=== PATIENT | female | born 1955 | race Caucasian/White ===

== ENCOUNTER → 2017-07-08 16:54 | Outpatient (CLI) | payer MEDICARE, BC, SELFPAY ==
--- NOTE | 2017-07-08 | XR_ITS ---
XR chest 2V Ordering Physician: Darnell Armstrong MD Patient Age: 61 years: Female HISTORY: ITS.REASON: COPD TECHNIQUE: PA and lateral chest COMPARISON :Previous CXR & 01/23/2017, with 11/27/2016 CT chest FINDINGS Heart upper normal in size. Emely and mediastinal structures satisfactory. The lungs appear similar to previous studies with no discrete acute findings. The markings are slightly more pronounced towards right base but this is a stable feature. There is mild dextrocurvature T-spine and mild degenerative changes T-spine. Chest wall unremarkable. .\ . mild flattening of diaphragm the lateral film may reflect mild hyperexpansion. . No significant lung lesions or nodules appreciated on this plain film. ====IMPRESSION: stable chest. Nothing definitely acute.
[2017-07-08 17:02] LABS: Adenovirus,PCR Not Detected (NotDetected); Bordetella Pertussis Not Detected (NotDetected); Chlamydophila Pneumoniae, PCR Not Detected (NotDetected); Coronavirus 229E Not Detected (NotDetected); Coronavirus NL63 Not Detected (NotDetected); Coronavirus OC43 Not Detected (NotDetected); Coronovirus HKU1,PCR Not Detected (NotDetected); Human Metapneumovirus Not Detected (NotDetected); Influenza A, PCR Not Detected (NotDetected); Influenza AH1, 2009 Not Detected (NotDetected); Influenza AH1, PCR Not Detected (NotDetected); Influenza AH3,PCR Not Detected (NotDetected); Influenza B, PCR Not Detected (NotDetected); Mycoplasma Pneumoniae, PCR Not Detected (NotDected); Parainfluenza 1, PCR Not Detected (NotDetected); Parainfluenza 2, PCR Not Detected (NotDetected); Parainfluenza 3, PCR Not Detected (NotDetected); Parainfluenza 4, PCR Not Detected (NotDetected); Respiratory Syncytial Virus Not Detected (NotDetected); Rhinovirus/Enterovirus Not Detected (NotDetected)
== END ==
PROVIDERS: PCP Internal Medicine Adolescent Medicine; Visit Provider Internal Medicine Adolescent Medicine
DX: R05 Cough (principal)
CPT/HCPCS: 71046; 87486; 87581; 87633; 87798

== ENCOUNTER → 2017-07-16 12:40 | Outpatient (CLI) | payer MEDICARE, BC, SELFPAY ==
--- NOTE | 2017-07-16 12:46 | CA_ITS ---
PROCEDURE: 2-D M-mode and color Doppler study INDICATIONS FOR THE TEST: Chest pain COPDX Heart Murmur Tobacco SmokingEX Palpitations Fatigue Syncope Edema HypertensionXDiabetes MellitusX Rheumatic Fever SOBXDOEXObesityXHyperlipidemia Family History HD Additional History TDS BODY HABITUS COPD PATIENT INFORMATION HEIGHT: 63 WEIGHT:226 GENDER: Female B/P:100/86 2-D/M-MODE INTERPRETATION: 2-D MEASUREMENTS OBSERVED VALUES IN CMS Right Ventricular Dimension (RVDd) 1.2 Interventricular Septum (Thickness)(IVsd) 1.4 Left Ventricular Internal Dimensions(LVIDd) 4.9 Left Ventricular Posterior Wall (Thickness)(LVPWd) 1.4 Aortic Root 3.1 Aortic Cusp Separation 1.9 Left Atrial Dimensions (LAD) 2.8 2D 1. Technically very difficult study, limited views were obtained. Endocardial surfaces are poorly visualized. 2. The left atrium is mildly enlarged, left ventricle is normal size, there is mild concentric left ventricular hypertrophy, there is hyperdynamic left ventricular systolic function, visually estimated ejection fraction obtained views is over 65%. Visualized segments did not assess segmental wall motion abnormality. 3. The right-sided chambers are grossly normal. 4. The aortic valve is thickened and calcified leaflet cannot well visualized. 5. The mitral valve has mitral annular calcification which extends and both anterior and posterior mitral leaflet. 6. The pulmonic valve is not visualized 7. The tricuspid valve leaflets are minimally thickened. 8. No significant pericardial effusion noted. DOPPLER INTERROGATION: Doppler interrogation of the aortic, mitral and tricuspid valve reveals presence of increased velocity across the aortic valve is 22 mmHg represents mild aortic stenosis, there is no significant aortic insufficiency present. There is mild mitral and tricuspid regurgitation, tricuspid and jet velocity insufficient for calculation of the right ventricular systolic pressure, diastolic parameters are inconclusive. CONCLUSION: 1. Technically difficult study because of the patient's factor and poor acoustic windows, endocardial surface of poorly visualized, limited views were obtained. 2. Mildly enlarged left atrium, normal left ventricular size, mild concentric left ventricular hypertrophy, hyperdynamic left ventricular systolic function, visually estimated ejection fraction was 65% in the obtained views. Diastolic parameters are inconclusive. 3. Thickened and calcified aortic valve, mean gradient across valve of 22 mmHg represents mild aortic stenosis, there is no significant aortic insuf
[2017-07-16 15:59] LABS: Anion Gap 15.7 mEq/L (5-15); Blood Urea Nitrogen 32 mg/dL (7-18); Carbon Dioxide 29 mmol/L (21.0-32.0); Chloride 99 mmol/L (98-107); Estimated Glomerular Filt Rate 35 ml/min (>60); GFR (African American) 43 ML/MIN (>60); Glucose 196 mg/dL (74-106); Potassium 4.7 mmoL/L (3.5-5.1); Sodium 139 mmol/L (136-145)
== END ==
PROVIDERS: PCP Internal Medicine Adolescent Medicine; Visit Provider Internal Medicine Cardiovascular Disease
DX: J44.9 Chronic obstructive pulmonary disease, unspecified (principal); I25.118 Atherosclerotic heart disease of native coronary artery with other forms of angina pectoris; I11.0 Hypertensive heart disease with heart failure; E66.9 Obesity, unspecified
CPT/HCPCS: 36415; 80048; 83880; 93306

== ENCOUNTER → 2017-07-25 11:36 | Outpatient (POV) | payer MEDICARE, BC, SELFPAY ==
[2017-07-25 12:01] LABS: Anion Gap 9.4 mEq/L (5-15); Blood Urea Nitrogen 27 mg/dL (7-18); Carbon Dioxide 32 mmol/L (21.0-32.0); Chloride 99 mmol/L (98-107); Creatinine,Serum 1.11 mg/dL (0.55-1.02); Estimated Glomerular Filt Rate 50 ml/min (>60); GFR (African American) 60 ML/MIN (>60); Glucose 264 mg/dL (74-106); Potassium 4.4 mmoL/L (3.5-5.1); Sodium 136 mmol/L (136-145)
== END ==
PROVIDERS: Physician Assistant; Visit Provider Internal Medicine Cardiovascular Disease
DX: I25.10 Atherosclerotic heart disease of native coronary artery without angina pectoris (principal); I11.9 Hypertensive heart disease without heart failure; R00.0 Tachycardia, unspecified; J44.9 Chronic obstructive pulmonary disease, unspecified; R06.00 Dyspnea, unspecified
CPT/HCPCS: 36415; 80048

== ENCOUNTER → 2017-08-13 12:24 | Outpatient (CLI) | payer MEDICARE, BC, SELFPAY ==
[2017-08-13 12:46] LABS: Basophils # 0.1 K/mm3 (0-0.2); Basophils % 0.6 % (0.1-2.0); Eosinophils # 0.2 K/mm3 (0.0-0.4); Eosinophils % 1.7 % (0.1-12.0); Hematocrit 35.3 % (37.0-47.0); Hemoglobin 11.2 g/dL (12.2-16.2); Lymphocytes # 1.6 K/mm3 (0.7-4.5); Lymphocytes % 18.6 K/mm3 (10-50); Mean Corpuscular HGB Conc 31.8 g/dL (31.8-35.4); Mean Corpuscular Hemoglobin 29.5 pg (27.0-31.2); Mean Corpuscular Volume 92.5 fl (81-99); Mean Platelet Volume 8.6 fl (7.4-10.4); Monocytes # 0.7 K/mm3 (0.1-1.0); Monocytes % 7.6 % (1.7-9.3); Neutrophils # 6.1 K/mm3 (1.8-7.8); Neutrophils % 71.4 % (37.0-80.0); Platelet Count 348 K/mm3 (142-424); Red Blood Count 3.81 M/mm3 (4.20-5.40); Red Cell Distribution Width 15.5 % (11.5-17.5); White Blood Count 8.6 K/mm3 (4.8-10.8)
[2017-08-13 13:03] LABS: Alanine Aminotransferase 31 U/L (12-78); Albumin Level 3.2 gm/dL (3.4-5.0); Albumin/Globulin Ratio 0.7 (1.1-1.8); Alkaline Phosphatase 79 U/L (46-116); Anion Gap 12.6 mEq/L (5-15); Aspartate Amino Transferase 26 U/L (15-37); Bilirubin,Total 0.3 mg/dL (0.2-1.0); Blood Urea Nitrogen 17 mg/dL (7-18); Calcium 8.8 mg/dL (8.5-10.1); Carbon Dioxide 28 mmol/L (21.0-32.0); Chloride 101 mmol/L (98-107); Chol/HDL Ratio 4.6 (1-3.5); Cholesterol 174 mg/dL (140-200); Creatinine,Serum 0.96 mg/dL (0.55-1.02); Estimated Glomerular Filt Rate 59 ml/min (>60); GFR (African American) 71 ML/MIN (>60); Globulin 4.3 gm/dl (1.3-3.2); Glucose 163 mg/dL (74-106); HDL Cholesterol 38 mg/dL (29-89); LDL Cholesterol 112 mg/dL (0-130); Potassium 4.6 mmoL/L (3.5-5.1); Sodium 137 mmol/L (136-145); Total Protein,Serum 7.5 gm/dL (6.4-8.2); Triglycerides 122 mg/dL (30-200); VLDL Cholesterol 24 mg/dL (0-40)
[2017-08-13 13:06] LABS: Hemoglobin A1C 8.3 % (0.0-7.0)
== END ==
PROVIDERS: Visit Provider Nurse Practitioner Family
DX: Z00.00 Encounter for general adult medical examination without abnormal findings (principal); E78.5 Hyperlipidemia, unspecified; E11.9 Type 2 diabetes mellitus without complications; I10 Essential (primary) hypertension; D64.9 Anemia, unspecified
CPT/HCPCS: 36415; 80053; 80061; 83036; 85025

== ENCOUNTER → 2017-08-30 09:30 | Outpatient (CLI) | payer MEDICARE, BC, SELFPAY ==
--- NOTE | 2017-08-30 09:32 | MM_ITS ---
MM Dig screening mamm BI w/CAD CAD Screening COMPARISON: Digital mammograms 04/11/2015 INDICATION: There is a history of breast cancer in patient's niece. TECHNIQUE: Standard CC and MLO images were obtained. R2 CAD reviewed. FINDINGS: The breasts are composed primarily of fat with minimal scattered fibroglandular densities in each breast. There are multiple benign-appearing calcifications in each breast. There is no suspicious lesion and no suspicious microcalcifications. IMPRESSION: Fatty type breast parenchyma with no suspicious lesion seen BI-RADS Category: 2 Benign Finding(s) RECOMMENDED FOLLOW-UP: 1YR - 1 YEAR FOLLOW-UP (A letter has been sent to the patient regarding results of the study.)
== END ==
PROVIDERS: PCP Internal Medicine Adolescent Medicine; Visit Provider Nurse Practitioner Family
DX: Z12.31 Encounter for screening mammogram for malignant neoplasm of breast (principal)
CPT/HCPCS: 77067

== ENCOUNTER 2017-08-30 21:28 | Observation (INO) ==
--- NOTE | 2017-08-30 21:39 | Emergency Department Note ---
ED Disposition Clinical Impression: Dehydration, Epigastric pain, Nausea Acute renal failure Qualifiers: Acute renal failure type: unspecified Qualified Code(s): N17.9 - Acute kidney failure, unspecified Thoracic back pain Qualifiers: Chronicity: acute Back pain laterality: bilateral Qualified Code(s): M54.6 - Pain in thoracic spine Disposition: Still a Patient Condition on Discharge: Good Referrals: Darnell Armstrong MD [Primary Care Provider] - - Critical Care Critical Care Time: No Attestation: On , the high probability of a clinically significant, sudden or life threatening deterioration of the following system(s) required my full and direct attention, intervention and personal management. The time I documented below is in addition to time spent performing reported procedures but includes the following listed in this critical care notation. Medical Decision Making - Harris Inquiry Pt receiving controlled substance: Yes Harris was queried for this patient: Yes Reference #:: [id number] Risks and benefits of using a controlled substance: were not discussed with pt by me Comment: 0 rxs. Vital Signs: 08/30/17 21:29 Temperature 98.1 F Temperature Source Oral Pulse Rate [Right Brachial] 85 Respiratory Rate 24 Blood Pressure [Right Arm] 145/87 Blood Pressure Mean [Right Arm] 106 Blood Pressure Source [Right Arm] Automatic Cuff Blood Pressure Position [Right Arm] Sitting 02 Sat by Pulse Oximetry 96 Oxygen Delivery Method Nasal Cannula Oxygen Flow Rate (LPM) 2 - Lab Data Lab Results 08/30/17 21:40: WBC 12.0 H, RBC 4.07 L, Hgb 12.4, Hct 37.4, MCV 91.9, MCH 30.4, MCHC 33.0, RDW 14.6, Plt Count 369, MPV 7.9, Neut % (Auto) 72.7, Lymph % (Auto) 20.3, Mcmullen % (Auto) 5.2, Eos % (Auto) 1.3, Baso % (Auto) 0.5, Neut # (Auto) 8.7 H, Lymph # (Auto) 2.5, Mcmullen # (Auto) 0.6, Eos # (Auto) 0.2, Baso # (Auto) 0.1 08/30/17 21:40: Sodium 132 L, Potassium 5.0, Chloride 94 L, Carbon Dioxide 27, Anion Gap 16.0 H, BUN 27 H, Creatinine 2.08 H, Estimated Creat Clear 45, Estimated GFR 24 L, Est GFR ( Amer) 29 L, Glucose 171 H, Calcium 9.7, Total Bilirubin 0.8, AST 28, ALT 26, Alkaline Phosphatase 77, Total Creatine Kinase 103, CK-MB (CK-2) 1.5, CK-MB (CK-2) Rel Index 1.5, Troponin I < 0.02, Total Protein 8.6 H, Albumin 4.2, Globulin 4.4 H, Albumin/Globulin Ratio 1.0 L, Amylase 55 08/30/17 21:40: Lipase 172 Result diagrams: 08/30/17 21:40 08/30/17 21:40 Orders (Tests/Meds): ED MEDICATIONS Discontinued Medications Generic Name Dose Route Start Last Admin Trade Name Steveq PRN Reason Stop Dose Admin Aspirin 324 mg 08/30/17 21:46 08/30/17 21:35 Aspirin 81mg Chewable Tablet PO 08/30/17 21:47 324 mg ONCE ONE Administration Morphine Sulfate 4 mg 08/30/17 22:10 08/30/17 22:33 Morphine 4mg/Ml Syringe IV 08/30/17 22:11 4 mg ONCE ONE Administration Ondansetron HCl 4 mg 08/30/17 22:10 08/30/17 22:33 Zofran 4mg/2ml Vial IV 08/30/17 22:11 4 mg ONCE ONE Administration ORDERS Category Date Time Status Thoracic spine 2 views [XR thoracic spine 2V] Stat Exams 08/30/17 22:23 Taken XR chest portable Stat Exams 08/30/17 21:45 Taken - Radiology Data #1 Image(s): Chest Image Reviewed: Yes I reviewed the patient's radiology image Preliminary Findings: Normal/NAD #2 Image(s): T-Spine Image Reviewed: Yes I reviewed the patient's radiology image No fracture seen. No change from prior lateral chest x-ray June of this year. - ECG Data Tracing #1 EKG interpreted by Jose David Waldron MD: Rhythm: sinus Rate: 85 [place]: normal Ectopy: none Conduction: normal ST Segment Changes: none T Wave Changes: none Q Waves: none No evidence of acute ischemia or injury Baseline artifact present, but I consider the EKG adequate for accurate interpretation. Medical Decision Narrative: Upper endoscopy on 06/24/[address] Goyal. Cricopharyngeal spasm. Nonerosive GERD. Small gastric fundic varices. Bile reflux. 11:10 PM: I have discussed the case with Dr. Butler for Dr. Montana who agrees to admit the patient to the hospital. We discussed the patient's clinical information, including history, exam, laboratory and radiology results and ED course. Per hospital procedure, I will write temporary bridge inpatient orders on the patient. Specific orders requested by the admitting physician: Normal saline at 75 cc/h. Hold diuretics. Clear liquids. Nausea medication. General Adult HPI - General Chief complaint: Chest Pain Stated complaint: chest pain Time Seen by Provider: 08/30/17 21:52 Mode of Arrival: Family Vehicle Limitations: Physical Limitations Description of Symptoms (Recalled from ER Triage Doc. by RN): c/o cp that started 2-3 days ago, worse tonight. describes it as mid epigastric pain radiating into her back, with increased soa from baseline (home o2 dependent). describes it as tightness and pressure. - History of Present Illness HPI narrative: She complains of back pain epigastric pain. She says the back pain is been intermittent for about 3 days. It is in the interscapular area. Nothing seems to exacerbated or alleviated. It lasts about 5 minutes at a time. She also complains of gastric area for a week. Her to touch that entire time, but the pain also seems to come and go but she has food intolerance for 1 week, nausea after she eats, and says she has lost 5 pounds because she has not been eating/ drinking well. She can apply pain she is requesting feels for the pain. She also wants her heart checked. Prior cholecystectomy. States that her endoscopy done June. It showed some biliary reflux. She says that she had a liver biopsy which shows cirrhosis. She sees Dr. Goyal. Review of records shows that she had a cardiac cath May 2016 which showed mild nonocclusive coronary artery disease. She has polymyalgia, but says that her current back pain is different than usual. - Related Data Home Medications Medication Instructions Recorded Confirmed Aspirin [Aspirin 81mg chewable 81 mg PO DAILY 06/18/17 08/30/17 tab] Esomeprazole Magnesium 20 mg PO DAILY 06/18/17 08/30/17 Ferrous Sulfate [Ferrous Sulfate 325 mg PO TID 06/18/17 08/30/17 325mg Tablet] Furosemide [Lasix 40mg tab] 40 mg PO BID 06/18/17 08/30/17 Insulin Detemir [Levemir 100 32 unit SQ DAILY 06/18/17 08/30/17 units/mL 10mL vial] Insulin Lispro [Humalog] 1 unit SQ NEEDED PRN 06/18/17 08/30/17 Lactobacillus Combo No.11 1 each PO DAILY 06/18/17 08/30/17 [Probiotic] Magnesium Oxide [Mag-Ox 400mg Tab] 400 mg PO BID 06/18/17 08/30/17 Metformin HCl [Fortamet] 1,000 mg PO BID 06/18/17 08/30/17 Sitagliptin Phosphate [Januvia] 100 mg PO DAILY 06/18/17 08/30/17 Spironolactone [Aldactone 25mg 50 mg PO BID 06/18/17 08/30/17 Tab] predniSONE [Prednisone 5mg 5 mg PO DAILY 06/18/17 08/30/17 Tab] Budesonide/Formoterol Fumarate 10.2 gm IH BID 06/24/17 08/30/17 [Symbicort 160-4.5 Mcg Inhaler] Fluticasone/Salmeterol [Advair Hfa 12 gm IH DAILY 06/24/17 08/30/17 230-21 Mcg Inhaler] buspirone 10 mg tablet 10 mg PO BID 07/04/17 08/30/17 diltiazem ER 120 mg 240 mg PO DAILY cap 07/25/17 08/30/17 capsule,extended release 12 hr Alpha Lipoic Acid 200 mg PO DAILY 08/30/17 08/30/17 Ferrous Sulfate 325 mg PO TID 08/30/17 08/30/17 L.acidoph,Paracasei, B.lactis 1 each PO DAILY 08/30/17 08/30/17 [Probiotic] Metoclopramide HCl [Reglan 5mg 5 mg PO ACHS 08/30/17 08/30/17 Tablet] Metoprolol Succinate 25 mg PO BID 08/30/17 08/30/17 Naproxen Sodium [Naproxen ER 500mg 500 mg PO BID 08/30/17 08/30/17 Tab] Allergies Allergy/AdvReac Type Severity Reaction Status Date / Time levalbuterol [From XOPENEX] Allergy Intermediate TACHYCARDIA, Verified 06/24/17 10:37 LABORED BREATHING [facility] History I have reviewed the patient's past medical history: Yes Medical History: Reports:: Asthma, Congestive Heart Failure, Chronic Obstructive Pulmonary Disease (COPD), Coronary Artery Disease, Diabetes Mellitus Type 2, Gastroesophageal Reflux Disease(GERD), Hyperlipidemia, Hypertension, Lung Disease, Palpitations Denies:: Cancer, Diabetes Mellitus Type 1, Internal Pacemaker, MRSA, Seizures Other Medical History: Reports: Arthritis. Denies: Blood Transfusion Reaction Other Surgeries: Yes: Cardiac Catheterization, Tubal Ligation, Other (Joint Replacement, Cholecystectomy). No: Pacemaker Amputation: No Fractures: No Comment: lap choly, exlap - Social History Educational Level: Completed High School Smoking Status: Former smoker Alcohol Intake: never Alcohol Intake Frequency:: other - Psychiatric History Expresses thoughts of harming self/others: None Suicide Plan Description: No Plan Family Hx:: Heart Attack, Coronary Artery Disease ROS Obtained: Yes All systems reviewed & no additional complaints - Constitutional Constitutional: Denies fever(s) - Cardiovascular Cardiovascular: Reports other (Locates pain around the cynthia-xiphoid area, but seems more abdo than chest) - Gastrointestinal Gastrointestingal: Reports: abdominal pain Physical Exam - General General appearance: alert, in no apparent distress - Head Head exam: atraumatic, normocephalic, normal inspection - Eye Eye exam: Present: normal appearance, PERRL, EOMI - ENT ENT exam: Present: normal exam, normal oropharynx, mucous membranes moist, TM's normal bilaterally, normal external ear exam - Neck Neck exam: Present: normal inspection, full ROM, trachea midline. Absent: meningismus, lymphadenopathy - Chest Chest inspection: Present: normal inspection, symmetric chest wall rise, tenderness (Lower sternal, xiphoid) - Respiratory Respiratory exam: Present: normal lung sounds bilaterally. Absent: respiratory distress - Cardiovascular Cardiovascular exam: Present: regular rate, normal rhythm. Absent: JVD - Abdominal Exam Abdominal exam: Present: soft, tenderness, normal bowel sounds. Absent: distention, guarding Abdominal tenderness: Present: epigastrium - Extremities Exam Extremities exam: Present: normal inspection, full ROM, normal capillary refill. Absent: calf tenderness - Back Exam Back exam: Present: normal inspection. Absent: tenderness - Neurological Exam Neurological exam: Present: alert, oriented X3 - Psychiatric Psychiatric exam: Present: normal affect, normal mood - Skin Skin exam: Present: warm, dry, intact, normal color
[2017-08-30 21:56] LABS: Basophils # 0.1 K/mm3 (0-0.2); Basophils % 0.5 % (0.1-2.0); Eosinophils # 0.2 K/mm3 (0.0-0.4); Eosinophils % 1.3 % (0.1-12.0); Hematocrit 37.4 % (37.0-47.0); Hemoglobin 12.4 g/dL (12.2-16.2); Lymphocytes # 2.5 K/mm3 (0.7-4.5); Lymphocytes % 20.3 K/mm3 (10-50); Mean Corpuscular Hemoglobin 30.4 pg (27.0-31.2); Mean Corpuscular Volume 91.9 fl (81-99); Mean Platelet Volume 7.9 fl (7.4-10.4); Monocytes # 0.6 K/mm3 (0.1-1.0); Monocytes % 5.2 % (1.7-9.3); Neutrophils # 8.7 K/mm3 (1.8-7.8); Neutrophils % 72.7 % (37.0-80.0); Platelet Count 369 K/mm3 (142-424); Red Blood Count 4.07 M/mm3 (4.20-5.40); Red Cell Distribution Width 14.6 % (11.5-17.5)
[2017-08-30 22:35] LABS: Alanine Aminotransferase 26 U/L (12-78); Albumin Level 4.2 gm/dL (3.4-5.0); Alkaline Phosphatase 77 U/L (46-116); Amylase 55 U/L (25-125); Aspartate Amino Transferase 28 U/L (15-37); Bilirubin,Total 0.8 mg/dL (0.2-1.0); Blood Urea Nitrogen 27 mg/dL (7-18); Calcium 9.7 mg/dL (8.5-10.1); Carbon Dioxide 27 mmol/L (21.0-32.0); Chloride 94 mmol/L (98-107); Creatine Kinase 103 U/L (26-192); Globulin 4.4 gm/dl (1.3-3.2); Glucose 171 mg/dL (74-106); Sodium 132 mmol/L (136-145); Total Protein,Serum 8.6 gm/dL (6.4-8.2)
[2017-08-31 06:12] LABS: Anion Gap 13.7 mEq/L (5-15); Potassium 5.7 mmoL/L (3.5-5.1)
--- NOTE | 2017-08-31 07:34 | History & Physical Report ---
*Admission Date: 08/30/17 *Chief complaint: epigastric abd pain *History of present illness: 62-year-old female with diagnosis of functional dyspepsia along with history of CHF presented to the emergency department with complaints of a week long episode of epigastric abdominal pain that radiated into the back. Patient has a history of functional dyspepsia for which she sees Dr. Goyal. She states usually flares of dyspepsia Rivas for several days before resolving on their own. However this episode does not seem to be improving and is the worst pain she can recall. She has had episodes of vomiting but that was approximately 4 days ago. Her appetite has been poor and she claims a 5 pound weight loss over the last week. Patient presented to the emergency department and while jet gastrointestinal workup was rather unremarkable she was found to have acute kidney injury. Patient was admitted and placed on gentle IV fluid hydration due to her history of CHF. Lasix and spironolactone have been held. [facility] History I have reviewed the patient's past medical history: Yes Medical History: Reports:: Asthma, Congestive Heart Failure, Chronic Obstructive Pulmonary Disease (COPD), Coronary Artery Disease, Diabetes Mellitus Type 2, Gastroesophageal Reflux Disease(GERD), Hyperlipidemia, Hypertension, Lung Disease, Palpitations Denies:: Cancer, Diabetes Mellitus Type 1, Internal Pacemaker, MRSA, Seizures Other Medical History: Reports: Arthritis. Denies: Blood Transfusion Reaction Other Surgeries: Yes: Cardiac Catheterization, Cholecystectomy, Tubal Ligation, Other (Joint Replacement, Cholecystectomy). No: Pacemaker Amputation: No Fractures: No - *Social History Educational Level: Completed High School Smoking Status: Former smoker Tobacco Type: cigarettes #Yrs smoked (if former smoker): 38 Smoking End Date: 07/18/2013 Alcohol Intake: never Alcohol Intake Frequency:: other Occupational Status: disabled Housing: house Household Members: spouse, children - Psychiatric History Expresses thoughts of harming self/others: None Suicide Plan Description: No Plan *Family Hx:: Coronary Artery Disease, Diabetes, Heart Attack, Hyperlipidemia, Hypertension, Stroke Review of Systems - Review of Systems Review of systems:: pertinent systems reviewed and negative unless documented below - Constitutional Reports anorexia, Denies body ache(s) - *Cardiovascular Denies chest pain - *Respiratory Reports shortness of breath, Denies cough - *Gastrointestinal Reports abdominal pain, Reports bloating, Reports heartburn, Reports nausea, Denies coffee ground vomit, Denies loose stools Meds Home Medications Medication Instructions Recorded Confirmed Type Aspirin [Aspirin 81mg chewable 81 mg PO DAILY 06/18/17 08/30/17 History tab] Esomeprazole Magnesium 20 mg PO DAILY 06/18/17 08/30/17 History Ferrous Sulfate [Ferrous Sulfate 325 mg PO TID 06/18/17 08/30/17 History 325mg Tablet] Furosemide [Lasix 40mg tab] 40 mg PO BID 06/18/17 08/30/17 History Insulin Detemir [Levemir 100 32 unit SQ DAILY 06/18/17 08/30/17 History units/mL 10mL vial] Insulin Lispro [Humalog] 1 unit SQ NEEDED PRN 06/18/17 08/30/17 History Lactobacillus Combo No.11 1 each PO DAILY 06/18/17 08/30/17 History [Probiotic] Magnesium Oxide [Mag-Ox 400mg Tab] 400 mg PO BID 06/18/17 08/30/17 History Metformin HCl [Fortamet] 1,000 mg PO BID 06/18/17 08/30/17 History Sitagliptin Phosphate [Januvia] 100 mg PO DAILY 06/18/17 08/30/17 History Spironolactone [Aldactone 25mg 50 mg PO BID 06/18/17 08/30/17 History Tab] predniSONE [Prednisone 5mg 5 mg PO DAILY 06/18/17 08/30/17 History Tab] Budesonide/Formoterol Fumarate 10.2 gm IH BID 06/24/17 08/30/17 History [Symbicort 160-4.5 Mcg Inhaler] Fluticasone/Salmeterol [Advair Hfa 12 gm IH DAILY 06/24/17 08/30/17 History 230-21 Mcg Inhaler] buspirone 10 mg tablet 10 mg PO BID 07/04/17 08/30/17 History diltiazem ER 120 mg 240 mg PO DAILY cap 07/25/17 08/30/17 History capsule,extended release 12 hr Alpha Lipoic Acid 200 mg PO DAILY 08/30/17 08/30/17 History Ferrous Sulfate 325 mg PO TID 08/30/17 08/30/17 History L.acidoph,Paracasei, B.lactis 1 each PO DAILY 08/30/17 08/30/17 History [Probiotic] Metoclopramide HCl [Reglan 5mg 5 mg PO ACHS 08/30/17 08/30/17 History Tablet] Metoprolol Succinate 25 mg PO BID 08/30/17 08/30/17 History Naproxen Sodium [Naproxen ER 500mg 500 mg PO BID 08/30/17 08/30/17 History Tab] Allergies Allergy/AdvReac Type Severity Reaction Status Date / Time levalbuterol [From XOPENEX] Allergy Intermediate TACHYCARDIA, Verified 06/24/17 10:37 LABORED BREATHING Exam Vital signs and Labs for Last 24 Hours: Temp Pulse Resp BP Pulse Ox 97.7 F 74 20 122/68 95 08/31/17 04:00 08/31/17 04:00 08/31/17 04:00 08/31/17 04:00 08/31/17 04:00 Laboratory Results - last 24 hr 08/31/17 05:30: Sodium 134 L, Potassium 5.7 H, Chloride 96 L, Carbon Dioxide 30 , Anion Gap 13.7, BUN 32 H, Creatinine 2.29 H, Estimated Creat Clear 41, Estimated GFR 22 L, Est GFR ( Amer) 26 L, Glucose 141 H 08/31/17 06:43: POC Glucose 119 H I & O for Last 24 hours: Intake & Output 08/28/17 08/29/17 08/30/17 08/31/17 11:59 11:59 11:59 11:59 Output Total 100 / 100 Balance -100 / -100 Weight 225 lb 4 oz Narrative: Patient is awake and alert this morning. She is wearing nasal cannula. Oropharynx is moist. Neck is without lymphadenopathy. Lungs are distant but clear. Heart has a regular rate and rhythm. Abdomen is obese and soft with mild epigastric tenderness without rebound or guarding. Bowel sounds are present. Patient can move all extremities. Gait was not tested. H&P: Result - Labs Labs: [facility] 08/31/17 05:30 Sodium 134 L Potassium 5.7 H Chloride 96 L Carbon Dioxide 30 BUN 32 H Creatinine 2.29 H Glucose 141 H Assessment and Plan (1) Acute kidney injury Current visit: Yes Status: Acute Category: Medical Code(s): N17.9 - Acute kidney failure, unspecified (2) Hyperkalemia Current visit: Yes Status: Acute Category: Medical Code(s): E87.5 - Hyperkalemia (3) Diabetes mellitus Current visit: No Status: Chronic Qualifiers: Diabetes mellitus type: type 2 Diabetes mellitus half-way insulin use: with half-way use Diabetes mellitus complication status: without complication Qualified Code(s): E11.9 - Type 2 diabetes mellitus without complications; Z79.4 - local intermodal truck driver (current) use of insulin Category: Medical Code(s): E11.9 - Type 2 diabetes mellitus without complications - Assessment and plan all Dx Assessment and Plan for all problems:: She has been admitted and will be maintained on gentle IV fluid hydration with serial BMPs ordered. Home medications will be ordered except for patient's Lasix and spironolactone. In regards to patient's functional dyspepsia she will be started on a liquid diet. At bedside this morning the patient had a Dilantin do which I pointed out was not the best thing to drink when one is having an upset stomach and the patient claimed that was the first time she had had a Mountain Dew all week.
--- NOTE | 2017-08-31 12:49 | Pharmacy Consult Notes ---
[facility] Pharmacy VTE Monitoring - Patient Demographics Admission date: 08/30/17 Report Date: 08/31/17 Time: 12:49 Allergies/Adverse Reactions: Patient Allergies levalbuterol [From XOPENEX] Allergy (Intermediate, Verified 06/24/17 10:37) TACHYCARDIA, LABORED BREATHING Height: 1.6 m Weight: 102.172 kg Patient Problems: Current Active Problems Acute renal failure (Acute) Dehydration (Acute) Thoracic back pain (Acute) Epigastric pain (Acute) Nausea (Acute) Acute kidney injury (Acute) Hyperkalemia (Acute) - VTE Risk Labs: VTE Related Lab Results Hgb 12.4 g/dL (12.2-16.2) 08/30/17 21:40 Hct 37.4 % (37.0-47.0) 08/30/17 21:40 Plt Count 369 K/mm3 (142-424) 08/30/17 21:40 BUN 31 mg/dL (7-18) H 08/31/17 07:10 Creatinine 2.23 mg/dL (0.55-1.02) H 08/31/17 07:10 Estimated Creat Clear 42 mL/min (0-300) 08/31/17 07:10 VTE Score: 7 VTE Risk Level: Moderate Risk - Prophylaxis VTE Prophylaxis Ordered?: Yes Types of VTE Prophylaxis: TEDS Knee High Location of Applied Device: Bilateral Lower Extremeties - VTE Diagnosis Confirmed Treatment or plan recommended: Continue Current Treatment
--- NOTE | 2017-09-01 07:46 | Discharge Summary ---
General - General Admission date: 08/30/17 Discharge date: 09/01/17 HPI HPI: 62-year-old female with diagnosis of functional dyspepsia along with history of CHF presented to the emergency department with complaints of a week long episode of epigastric abdominal pain that radiated into the back. Patient has a history of functional dyspepsia for which she sees Dr. Goyal. She states usually flares of dyspepsia Rivas for several days before resolving on their own. However this episode does not seem to be improving and is the worst pain she can recall. She has had episodes of vomiting but that was approximately 4 days ago. Her appetite has been poor and she claims a 5 pound weight loss over the last week. Patient presented to the emergency department and while jet gastrointestinal workup was rather unremarkable she was found to have acute kidney injury. Patient was admitted and placed on gentle IV fluid hydration due to her history of CHF. Lasix and spironolactone have been held. Hospital Course Hospital Course: Patient was admitted for gentle IV fluid hydration. While hospitalized she also received morphine for epigastric pain. Diet was initially liquid which she tolerated without vomiting. On the morning of the patient reported significant improvement in overall feelings of well-being as well as her epigastric pain and requested advancement of diet. Patient was placed on a diabetic diet which she tolerated. Her creatinine improved significantly with IV fluid hydration. Once patient was tolerating her diet she was discharged home. She has follow-up with Dr. Goyal as an outpatient tomorrow. I have advised her to follow up with Dr. Montana on Saturday. In the interim she will discontinue her anti-inflammatory, Lasix, Spironolactone Objective Vital signs: Temp Pulse Resp BP Pulse Ox 97.7 F 89 20 120/62 95 09/01/17 07:40 09/01/17 07:40 09/01/17 07:40 09/01/17 07:40 09/01/17 07:40 Results Labs on day of discharge: Labs from last 24 hours 09/01/17 09/01/17 08/31/17 06:40 06:26 20:02 Sodium 132 L Potassium 5.0 Chloride 94 L Carbon Dioxide 31 Anion Gap 12.0 BUN 19 H D Creatinine 1.01 D Estimated Creat Clear 95 Estimated GFR 56 L Est GFR ( Amer) 67 D Glucose 144 H POC Glucose 130 H 175 H 08/31/17 08/31/17 16:32 11:35 Sodium Potassium Chloride Carbon Dioxide Anion Gap BUN Creatinine Estimated Creat Clear Estimated GFR Est GFR ( Amer) Glucose POC Glucose 130 H 181 H DS: Diagnosis - Discharge Diagnosis (1) Acute kidney injury Status: Acute (2) Hyperkalemia Status: Acute (3) Diabetes mellitus Status: Chronic Discharge Plan - Patient Discharge Instructions ACTIVITY: Continue current activity DIET: continue same diet - Follow up Plan Follow up with: Darnell Armstrong MD [Primary Care Provider] - 2 days Disposition: Home, Self-Half-Way Medications: Home Medications Medication Instructions Recorded Confirmed Type Aspirin [Aspirin 81mg chewable 81 mg PO DAILY 06/18/17 08/30/17 History tab] Esomeprazole Magnesium 20 mg PO DAILY 06/18/17 08/30/17 History Ferrous Sulfate [Ferrous Sulfate 325 mg PO TID 06/18/17 08/30/17 History 325mg Tablet] Furosemide [Lasix 40mg tab] 40 mg PO BID 06/18/17 08/30/17 History Insulin Detemir [Levemir 100 32 unit SQ DAILY 06/18/17 08/30/17 History units/mL 10mL vial] Insulin Lispro [Humalog] 0 unit SQ NEEDED PRN 06/18/17 08/31/17 History Lactobacillus Combo No.11 1 each PO DAILY 06/18/17 08/30/17 History [Probiotic] Magnesium Oxide [Mag-Ox 400mg Tab] 400 mg PO BID 06/18/17 08/30/17 History Metformin HCl [Fortamet] 1,000 mg PO BID 06/18/17 08/30/17 History Sitagliptin Phosphate [Januvia] 100 mg PO DAILY 06/18/17 08/30/17 History Spironolactone [Aldactone 25mg 50 mg PO BID 06/18/17 08/30/17 History Tab] predniSONE [Prednisone 5mg 5 mg PO DAILY 06/18/17 08/30/17 History Tab] Budesonide/Formoterol Fumarate 2 puffs IH BID 06/24/17 08/31/17 History [Symbicort 160-4.5 Mcg Inhaler] Fluticasone/Salmeterol [Advair Hfa 2 puffs IH BID 06/24/17 08/31/17 History 230-21 Mcg Inhaler] buspirone 10 mg tablet 10 mg PO BID 07/04/17 08/30/17 History Alpha Lipoic Acid 200 mg PO DAILY 08/30/17 08/30/17 History Ferrous Sulfate 325 mg PO TID 08/30/17 08/30/17 History L.acidoph,Paracasei, B.lactis 1 each PO DAILY 08/30/17 08/30/17 History [Probiotic] Metoclopramide HCl [Reglan 5mg 5 mg PO ACHS 08/30/17 08/30/17 History Tablet] Metoprolol Succinate 25 mg PO BID 08/30/17 08/30/17 History Naproxen Sodium [Naproxen ER 500mg 500 mg PO BID 08/30/17 08/30/17 History Tab] dilTIAZem HCl [Cartia Xt] 240 mg PO DAILY 08/31/17 08/31/17 History Prescriptions/Medication Reconciliation: Continue buspirone 10 mg tablet 10 mg PO BID Insulin Detemir [Levemir 100 units/mL 10mL vial] 32 unit SQ DAILY Esomeprazole Magnesium 20 mg PO DAILY Aspirin [Aspirin 81mg chewable tab] 81 mg PO DAILY Sitagliptin Phosphate [Januvia] 100 mg PO DAILY Metformin HCl [Fortamet] 1,000 mg PO BID Ferrous Sulfate [Ferrous Sulfate 325mg Tablet] 325 mg PO TID Magnesium Oxide [Mag-Ox 400mg Tab] 400 mg PO BID Lactobacillus Combo No.11 [Probiotic] 1 each PO DAILY Fluticasone/Salmeterol [Advair Hfa 230-21 Mcg Inhaler] 2 puffs IH BID Budesonide/Formoterol Fumarate [Symbicort 160-4.5 Mcg Inhaler] 2 puffs IH BID Ferrous Sulfate 325 mg PO TID Metoclopramide HCl [Reglan 5mg Tablet] 5 mg PO ACHS L.acidoph,Paracasei, B.lactis [Probiotic] 1 each PO DAILY Alpha Lipoic Acid 200 mg PO DAILY Insulin Lispro [Humalog] 0 unit SQ NEEDED PRN PRN Reason: DIABETES Metoprolol Succinate 25 mg PO BID dilTIAZem HCl [Cartia Xt] 240 mg PO DAILY Discontinued predniSONE [Prednisone 5mg Tab] 5 mg PO DAILY Spironolactone [Aldactone 25mg Tab] 50 mg PO BID Naproxen Sodium [Naproxen ER 500mg Tab] 500 mg PO BID Furosemide [Lasix 40mg tab] 40 mg PO BID
== END 2017-09-01 09:56 | disposition home or self-care (01) ==
LOC: 2ND 21:28 → ER 21:28 → INTOOBSV 08-31 00:40 → OBSVTOIN 08-31 00:40 → 2ND 08-31 00:42
PROVIDERS: ADMIT Family Medicine; ATTEND Internal Medicine Adolescent Medicine

== ENCOUNTER → 2017-09-02 12:24 | Outpatient (POV) | payer MEDICARE, BC, SELFPAY ==
[2017-09-02 14:33] LABS: Basophils % 0.3 % (0.1-2.0); Eosinophils # 0.2 K/mm3 (0.0-0.4); Eosinophils % 2.2 % (0.1-12.0); Hematocrit 39.3 % (37.0-47.0); Hemoglobin 12.6 g/dL (12.2-16.2); Mean Corpuscular Hemoglobin 30.1 pg (27.0-31.2); Mean Corpuscular Volume 94.3 fl (81-99); Mean Platelet Volume 7.4 fl (7.4-10.4); Monocytes # 0.6 K/mm3 (0.1-1.0); Neutrophils # 6.6 K/mm3 (1.8-7.8); Neutrophils % 70.5 % (37.0-80.0); Platelet Count 373 K/mm3 (142-424); Red Blood Count 4.17 M/mm3 (4.20-5.40); Red Cell Distribution Width 14.6 % (11.5-17.5); White Blood Count 9.3 K/mm3 (4.8-10.8)
[2017-09-02 14:37] LABS: INR 0.99 (0.9-1.1); Prothrombin Time 10.7 seconds (9.4-11.8)
[2017-09-02 14:39] LABS: Ammonia < 10 umol/L (19-54)
[2017-09-02 15:52] LABS: Alanine Aminotransferase 29 U/L (12-78); Alkaline Phosphatase 71 U/L (46-116); Amylase 57 U/L (25-125); Anion Gap 12.5 mEq/L (5-15); Aspartate Amino Transferase 27 U/L (15-37); Bilirubin,Total 0.4 mg/dL (0.2-1.0); Blood Urea Nitrogen 13 mg/dL (7-18); Calcium 9.6 mg/dL (8.5-10.1); Carbon Dioxide 31 mmol/L (21.0-32.0); Chloride 96 mmol/L (98-107); Creatinine,Serum 1.02 mg/dL (0.55-1.02); Estimated Glomerular Filt Rate 55 ml/min (>60); GFR (African American) 66 ML/MIN (>60); Glucose 105 mg/dL (74-106); Lipase 188 u/L (73-393); Potassium 5.5 mmoL/L (3.5-5.1); Sodium 134 mmol/L (136-145)
[2017-09-04 16:15] LABS: AFP, Tumor Marker 4.7 ng/mL (0.0-8.3)
== END ==
PROVIDERS: PCP Internal Medicine Adolescent Medicine; Visit Provider Nurse Practitioner Acute Care
DX: K74.69 Other cirrhosis of liver (principal)
CPT/HCPCS: 36415; 80053; 82105; 82140; 82150; 83690; 85025; 85610

== ENCOUNTER → 2017-09-04 08:05 | Outpatient (CLI) | payer MEDICARE, BC, SELFPAY ==
--- NOTE | 2017-09-04 08:13 | US_ITS ---
US abdomen limited: HISTORY: Abdominal pain, right upper quadrant pain with nausea and vomiting ITS.REASON: CIRRHOSIS ORDERING PHYSICIAN: Keyla Hernández PATIENT AGE: 62 years COMPARISON: 02/27/2013 FINDINGS: PANCREAS: Unremarkable. No obvious mass or abnormal fluid collection. No ductal dilatation LIVER: There is a coarse echogenic appearance of the liver not significant changed. No focal liver lesions are demonstrated. There is appropriate direction of blood flow within the portal vein does not appear dilated measuring up to 10 mm in diameter. RIGHT KIDNEY: Cortical thinning of the right kidney. 19 mm cyst is present along the lower pole. No hydronephrosis. GALLBLADDER: Status post cholecystectomy. Common bile duct is within normal limits at 2 mm IMPRESSION: Coarse echogenic appearance of the liver which may be seen with cirrhosis. Normal sized portal vein with appropriate direction of blood flow within the portal vein 19 mm right renal cyst with right renal cortical thinning Prior cholecystectomy. No ductal dilatation
== END ==
PROVIDERS: PCP Internal Medicine Adolescent Medicine; Visit Provider Nurse Practitioner Acute Care
DX: K74.69 Other cirrhosis of liver (principal); R10.11 Right upper quadrant pain
CPT/HCPCS: 76705

== ENCOUNTER → 2017-10-21 07:56 | Outpatient (POV) | payer MEDICARE, BC, SELFPAY | PROVIDERS: Visit Provider Nurse Practitioner Acute Care | DX: Z00.00 Encounter for general adult medical examination without abnormal findings (principal) ==

== ENCOUNTER → 2017-11-12 12:47 | Outpatient (POV) | payer MEDICARE, BC, SELFPAY ==
[2017-11-12 15:20] LABS: Basophils # 0.1 K/mm3 (0-0.2); Basophils % 0.5 % (0.1-2.0); Eosinophils # 0.3 K/mm3 (0.0-0.4); Eosinophils % 2.5 % (0.1-12.0); Hemoglobin 13.2 g/dL (12.2-16.2); Lymphocytes # 1.6 K/mm3 (0.7-4.5); Lymphocytes % 14.7 K/mm3 (10-50); Mean Corpuscular HGB Conc 30.8 g/dL (31.8-35.4); Mean Corpuscular Hemoglobin 29.3 pg (27.0-31.2); Mean Corpuscular Volume 95.1 fl (81-99); Mean Platelet Volume 7.4 fl (7.4-10.4); Monocytes # 0.5 K/mm3 (0.1-1.0); Neutrophils # 8.3 K/mm3 (1.8-7.8); Neutrophils % 77.3 % (37.0-80.0); Platelet Count 350 K/mm3 (142-424); Red Blood Count 4.52 M/mm3 (4.20-5.40); Red Cell Distribution Width 13.6 % (11.5-17.5); White Blood Count 10.8 K/mm3 (4.8-10.8)
[2017-11-12 16:13] LABS: Alanine Aminotransferase 31 U/L (12-78); Albumin Level 4.1 gm/dL (3.4-5.0); Albumin/Globulin Ratio 1.1 (1.1-1.8); Alkaline Phosphatase 76 U/L (46-116); Anion Gap 15.1 mEq/L (5-15); Aspartate Amino Transferase 28 U/L (15-37); Bilirubin,Total 0.4 mg/dL (0.2-1.0); Blood Urea Nitrogen 35 mg/dL (7-18); Calcium 9.2 mg/dL (8.5-10.1); Carbon Dioxide 27 mmol/L (21.0-32.0); Chloride 99 mmol/L (98-107); Creatinine,Serum 1.37 mg/dL (0.55-1.02); Estimated Glomerular Filt Rate 39 ml/min (>60); GFR (African American) 47 ML/MIN (>60); Globulin 3.9 gm/dl (1.3-3.2); Glucose 122 mg/dL (74-106); Potassium 5.1 mmoL/L (3.5-5.1); Sodium 136 mmol/L (136-145)
[2017-11-12 18:15] LABS: Erythrocyte Sedimentation Rate 59 mm/hr (0-30)
[2017-11-16 02:10] LABS: D001-IgE D pteronyssinus <0.10 kU/L (Class 0); D002-IgE D farinae <0.10 kU/L (Class 0); E001-IgE Cat Dander <0.10 kU/L (Class 0); E005-IgE Dog Dander <0.10 kU/L (Class 0); G002-IgE Bermuda Grass <0.10 kU/L (Class 0); G006-IgE Timothy Grass <0.10 kU/L (Class 0); I006-IgE Cockroach, German <0.10 kU/L (Class 0); Immunoglobulin E, Total 6 IU/mL (0-100); M001-IgE Penicillium chrysogen <0.10 kU/L (Class 0); M002-IgE Cladosporium herbarum <0.10 kU/L (Class 0); M003-IgE Aspergillus fumigatus <0.10 kU/L (Class 0); M006-IgE Alternaria alternata <0.10 kU/L (Class 0); T001-IgE Maple/Box Elder <0.10 kU/L (Class 0); T003-IgE Common Silver Birch <0.10 kU/L (Class 0); T006-IgE Cedar, Mountain <0.10 kU/L (Class 0); T007-IgE Oak, White <0.10 kU/L (Class 0); T008-IgE Elm, American <0.10 kU/L (Class 0); T010-IgE Walnut <0.10 kU/L (Class 0); T011-IgE Maple Leaf Sycamore <0.10 kU/L (Class 0); T014-IgE Cottonwood <0.10 kU/L (Class 0); T015-IgE Ash, White <0.10 kU/L (Class 0); T022-IgE Pecan, Hickory <0.10 kU/L (Class 0); T070-IgE White Mulberry <0.10 kU/L (Class 0); W001-IgE Ragweed, Short <0.10 kU/L (Class 0); W011-IgE Thistle, Russian <0.10 kU/L (Class 0); W014-IgE Pigweed, Common <0.10 kU/L (Class 0); W018-IgE Sheep Sorrel <0.10 kU/L (Class 0)
[2017-11-16 18:05] LABS: E072-IgE Mouse Urine <0.10 kU/L (Class 0)
== END ==
PROVIDERS: Nurse Practitioner Family; Visit Provider Internal Medicine
DX: M35.3 Polymyalgia rheumatica (principal); D50.9 Iron deficiency anemia, unspecified; J45.909 Unspecified asthma, uncomplicated
CPT/HCPCS: 36415; 80053; 85025; 85651; 86003

== ENCOUNTER → 2017-11-26 11:53 | Outpatient (CLI) | payer MEDICARE, BC, SELFPAY ==
[2017-11-26 12:53] LABS: Chol/HDL Ratio 4.6 (1-3.5); Cholesterol 210 mg/dL (140-200); HDL Cholesterol 46 mg/dL (29-89); LDL Cholesterol 132 mg/dL (0-130); Thyroid Stimulating Hormone 2.91 uIU/ml (0.358-3.740); Triglycerides 159 mg/dL (30-200); VLDL Cholesterol 32 mg/dL (0-40)
[2017-11-26 13:02] LABS: Hemoglobin A1C 6.5 % (0.0-7.0)
[2017-11-28 06:04] LABS: Vitamin B12 588 pg/mL (232-1245); Vitamin D 25 Hydroxy 23.5 ng/mL (30.0-100.0)
== END ==
PROVIDERS: Visit Provider Nurse Practitioner Family
DX: Z00.00 Encounter for general adult medical examination without abnormal findings (principal); E78.5 Hyperlipidemia, unspecified; E11.9 Type 2 diabetes mellitus without complications; R53.83 Other fatigue
CPT/HCPCS: 36415; 80061; 82607; 82652; 83036; 84443

== ENCOUNTER → 2017-12-18 12:46 | Outpatient (CLI) | payer MEDICARE, BC, SELFPAY ==
[2017-12-18 14:55] LABS: Blood Urea Nitrogen 29 mg/dL (7-18); Estimated Glomerular Filt Rate 46 ml/min (>60); GFR (African American) 55 ML/MIN (>60)
== END ==
PROVIDERS: Visit Provider Nurse Practitioner Family
DX: R91.1 Solitary pulmonary nodule (principal)
CPT/HCPCS: 36415; 82565; 84520

== ENCOUNTER → 2017-12-20 12:46 | Outpatient (CLI) | payer MEDICARE, BC, SELFPAY ==
--- NOTE | 2017-12-20 12:49 | CT_ITS ---
CT chest wo con HISTORY: Follow-up pulmonary nodules ITS.REASON: PULMONARY NODULE ORDERING PHYSICIAN: Ricardo Anderson MD PATIENT AGE: 62 years COMPARISON: 11/28/2016 Technique: Axial images obtained with sagittal and coronal reformats. All CT scans at the facility use one or more dose reduction, viz: automated exposure control, ma/kV adjustment per patient size (including targeted exams where dose is matched to indication, i.e. head), or iterative reconstruction technique. FINDINGS: Scattered small nodes are present in the mediastinum. Some of these are calcified. No mediastinal or hilar mass or adenopathy. Normal heart size. There are coronary artery calcifications. No suspicious pulmonary nodules are evident. There is a stable 3 mm nodule in the left lower lobe posteriorly. There are scattered 1 to 2 mm nodular opacities are present. No new suspicious nodules. There are scattered mild fibrotic changes in the lung bases. Upper abdominal images are unremarkable. No central obstructing lesions. No acute bony anomalies. IMPRESSION: 1. Stable CT appearance of the chest. No acute finding. No change left lower lobe nodule. 2. Coronary artery calcifications
== END ==
PROVIDERS: PCP Internal Medicine Adolescent Medicine; Visit Provider Internal Medicine
DX: R91.1 Solitary pulmonary nodule (principal)
CPT/HCPCS: 71250

== ENCOUNTER → 2018-01-27 13:22 | Outpatient (POV) | payer MEDICARE, BC, SELFPAY ==
[2018-01-27 14:43] LABS: Ammonia 23 umol/L (19-54)
[2018-01-27 14:53] LABS: INR 1.03 (0.9-1.1); Prothrombin Time 10.6 seconds (9.4-11.8)
[2018-01-27 14:56] LABS: Basophils % 0.5 % (0.1-2.0); Eosinophils # 0.4 K/mm3 (0.0-0.4); Eosinophils % 4.3 % (0.1-12.0); Hematocrit 38.1 % (37.0-47.0); Hemoglobin 12.3 g/dL (12.2-16.2); Lymphocytes # 2.2 K/mm3 (0.7-4.5); Lymphocytes % 26.7 K/mm3 (10-50); Mean Corpuscular HGB Conc 32.2 g/dL (31.8-35.4); Mean Corpuscular Hemoglobin 30.7 pg (27.0-31.2); Mean Corpuscular Volume 95.4 fl (81-99); Mean Platelet Volume 7.6 fl (7.4-10.4); Monocytes # 0.5 K/mm3 (0.1-1.0); Monocytes % 6.2 % (1.7-9.3); Neutrophils # 5.2 K/mm3 (1.8-7.8); Neutrophils % 62.3 % (37.0-80.0); Platelet Count 270 K/mm3 (142-424); Red Blood Count 3.99 M/mm3 (4.20-5.40); Red Cell Distribution Width 13.3 % (11.5-17.5); White Blood Count 8.4 K/mm3 (4.8-10.8)
[2018-01-27 16:12] LABS: Alanine Aminotransferase 32 U/L (12-78); Albumin Level 3.9 gm/dL (3.4-5.0); Alkaline Phosphatase 99 U/L (46-116); Anion Gap 14.8 mEq/L (5-15); Aspartate Amino Transferase 25 U/L (15-37); Bilirubin,Total 0.4 mg/dL (0.2-1.0); Blood Urea Nitrogen 29 mg/dL (7-18); Calcium 9.2 mg/dL (8.5-10.1); Carbon Dioxide 31 mmol/L (21.0-32.0); Chloride 100 mmol/L (98-107); Creatinine,Serum 1.31 mg/dL (0.55-1.02); Estimated Glomerular Filt Rate 41 ml/min (>60); Ferritin 44 ng/mL (8-388); GFR (African American) 50 ML/MIN (>60); Glucose 153 mg/dL (74-106); Potassium 4.8 mmoL/L (3.5-5.1); Sodium 141 mmol/L (136-145); Total Protein,Serum 7.9 gm/dL (6.4-8.2)
[2018-01-29 08:26] LABS: Iron 86 ug/dL (27-139); Iron Saturation 21 % (15-55); UIBC 324 ug/dL (118-369)
[2018-01-29 12:41] LABS: AFP, Tumor Marker 4.8 ng/mL (0.0-8.3)
== END ==
PROVIDERS: PCP Internal Medicine Adolescent Medicine; Visit Provider Nurse Practitioner Acute Care
DX: K74.60 Unspecified cirrhosis of liver (principal)
CPT/HCPCS: 36415; 80053; 82105; 82140; 82728; 83540; 83550; 85025; 85610

== ENCOUNTER → 2018-02-21 07:39 | Outpatient (CLI) | payer MEDICARE, BC, SELFPAY ==
--- NOTE | 2018-02-21 08:00 | US_ITS ---
US abdomen limited History:Cirrhosis, abdominal pain Ordering Physician:Keyla Hernández Patient Age: 62 years Comparison:None Findings: Pancreas:Unremarkable. No obvious mass or abnormal fluid collection. No ductal dilatation Liver:There is coarse echotexture of the liver with minimal surface irregularity suggesting cirrhosis. There is appropriate directional blood flow within the portal vein which does not appear dilated. No focal liver lesions are evident. Right Kidney:Unremarkable. Normal size and echogenicity. No hydronephrosis 2.4 cm cyst along the lower pole the right kidney Gallbladder:Prior cholecystectomy. Common bile duct is normal at 6 mm Impression: 1. Coarse echotexture of the liver with surface irregularity consistent with cirrhosis. Normal directional blood flow within the portal vein which is not dilated. 2. Prior cholecystectomy
== END ==
PROVIDERS: PCP Internal Medicine Adolescent Medicine; Visit Provider Nurse Practitioner Acute Care
DX: K74.60 Unspecified cirrhosis of liver (principal)
CPT/HCPCS: 76705

== ENCOUNTER → 2018-04-02 10:45 | Outpatient (CLI) | payer MEDICARE, BC, SELFPAY ==
[2018-04-02 11:40] LABS: Anion Gap 0.8 mEq/L (5-15); Blood Urea Nitrogen 39 mg/dL (7-18); Calcium 9.3 mg/dL (8.5-10.1); Carbon Dioxide 34 mmol/L (21.0-32.0); Chloride 100 mmol/L (98-107); Creatinine,Serum 1.51 mg/dL (0.55-1.02); Estimated Glomerular Filt Rate 35 ml/min (>60); GFR (African American) 42 ML/MIN (>60); Glucose 131 mg/dL (74-106); Potassium 4.8 mmoL/L (3.5-5.1); Sodium 130 mmol/L (136-145)
== END ==
PROVIDERS: Visit Provider Physician Assistant
DX: E11.9 Type 2 diabetes mellitus without complications (principal); E66.9 Obesity, unspecified; I11.9 Hypertensive heart disease without heart failure; I25.10 Atherosclerotic heart disease of native coronary artery without angina pectoris; I50.9 Heart failure, unspecified; J44.9 Chronic obstructive pulmonary disease, unspecified; R00.0 Tachycardia, unspecified; R06.00 Dyspnea, unspecified; R53.83 Other fatigue; R60.9 Edema, unspecified
CPT/HCPCS: 36415; 80048

== ENCOUNTER → 2018-04-08 14:56 | Outpatient (CLI) | payer MEDICARE, BC, SELFPAY ==
[2018-04-08 15:43] LABS: Anion Gap 11.5 mEq/L (5-15); Blood Urea Nitrogen 18 mg/dL (7-18); Calcium 9.1 mg/dL (8.5-10.1); Carbon Dioxide 33 mmol/L (21.0-32.0); Chloride 100 mmol/L (98-107); Creatinine,Serum 0.97 mg/dL (0.55-1.02); Estimated Glomerular Filt Rate 58 ml/min (>60); GFR (African American) 70 ML/MIN (>60); Glucose 218 mg/dL (74-106); Potassium 4.5 mmoL/L (3.5-5.1); Sodium 140 mmol/L (136-145)
== END ==
PROVIDERS: Visit Provider Urology
DX: E11.9 Type 2 diabetes mellitus without complications (principal); E66.9 Obesity, unspecified; I11.9 Hypertensive heart disease without heart failure; I25.10 Atherosclerotic heart disease of native coronary artery without angina pectoris; J44.9 Chronic obstructive pulmonary disease, unspecified; R00.0 Tachycardia, unspecified; R06.00 Dyspnea, unspecified; R53.83 Other fatigue; R60.9 Edema, unspecified
CPT/HCPCS: 36415; 80048

== ENCOUNTER → 2018-04-17 11:34 | Outpatient (CLI) | payer MEDICARE, BC, SELFPAY ==
[2018-04-17 12:45] LABS: Alanine Aminotransferase 26 U/L (12-78); Albumin Level 3.7 gm/dL (3.4-5.0); Alkaline Phosphatase 83 U/L (46-116); Anion Gap 12.9 mEq/L (5-15); Aspartate Amino Transferase 20 U/L (15-37); Bilirubin,Total 0.4 mg/dL (0.2-1.0); Blood Urea Nitrogen 21 mg/dL (7-18); Calcium 9.2 mg/dL (8.5-10.1); Carbon Dioxide 30 mmol/L (21.0-32.0); Chloride 95 mmol/L (98-107); Chol/HDL Ratio 3.4 (1-3.5); Cholesterol 139 mg/dL (140-200); Creatinine,Serum 1.11 mg/dL (0.55-1.02); Estimated Glomerular Filt Rate 50 ml/min (>60); GFR (African American) 60 ML/MIN (>60); Globulin 3.7 gm/dl (1.3-3.2); Glucose 129 mg/dL (74-106); HDL Cholesterol 41 mg/dL (29-89); LDL Cholesterol 66 mg/dL (0-130); Potassium 4.9 mmoL/L (3.5-5.1); Sodium 133 mmol/L (136-145); Total Protein,Serum 7.4 gm/dL (6.4-8.2); Triglycerides 162 mg/dL (30-200); VLDL Cholesterol 32 mg/dL (0-40)
== END ==
PROVIDERS: Visit Provider Nurse Practitioner Family
DX: Z00.00 Encounter for general adult medical examination without abnormal findings (principal); E11.9 Type 2 diabetes mellitus without complications; E78.5 Hyperlipidemia, unspecified
CPT/HCPCS: 36415; 80053; 80061; 83036

== ENCOUNTER → 2018-06-24 14:37 | Outpatient (POV) | payer MEDICARE, BC, SELFPAY | PROVIDERS: Visit Provider Internal Medicine | DX: Z00.00 Encounter for general adult medical examination without abnormal findings (principal) ==

== ENCOUNTER → 2018-07-28 14:15 | Outpatient (POV) | payer MEDICARE, BC, SELFPAY | PROVIDERS: Visit Provider Nurse Practitioner Acute Care | DX: Z00.00 Encounter for general adult medical examination without abnormal findings (principal) ==

== ENCOUNTER → 2018-08-27 07:39 | Outpatient (CLI) | payer MEDICARE, BC, SELFPAY ==
--- NOTE | 2018-08-27 07:43 | US_ITS ---
US abdomen limited History:Follow-up cirrhosis Ordering Physician:Keyla Hernández Patient Age: 63 years Comparison:02/21/2018 Findings: Pancreas:Unremarkable. No obvious mass or abnormal fluid collection. No ductal dilatation Liver:The liver has a cirrhotic appearance. There is appropriate direction of blood flow within a nondilated portal vein. No biliary dilatation. No focal liver lesions demonstrated Right Kidney:No hydronephrosis. There is an 18 mm cyst along the lower pole the right kidney. Gallbladder:Postcholecystectomy changes. Common bile duct is normal at 5 mm Impression: 1. Cirrhotic appearing liver. Appropriate direction of blood flow within a nondilated portal vein 2. Prior cholecystectomy
[2018-08-27 08:59] LABS: Ammonia 16 umol/L (19-54)
[2018-08-27 09:00] LABS: INR 1.03 (0.9-1.1); Prothrombin Time 10.6 seconds (9.4-11.8)
[2018-08-27 10:22] LABS: Basophils % 0.4 % (0.1-2.0); Eosinophils # 0.4 K/mm3 (0.0-0.4); Eosinophils % 4.3 % (0.1-12.0); Hematocrit 37.7 % (37.0-47.0); Hemoglobin 12.3 g/dL (12.2-16.2); Lymphocytes # 2.1 K/mm3 (0.7-4.5); Lymphocytes % 25.3 % (10-50); Mean Corpuscular HGB Conc 32.5 g/dL (31.8-35.4); Mean Corpuscular Hemoglobin 30.7 pg (27.0-31.2); Mean Corpuscular Volume 94.4 fl (81-99); Monocytes # 0.6 K/mm3 (0.1-1.0); Monocytes % 7.5 % (1.7-9.3); Neutrophils # 5.1 K/mm3 (1.8-7.8); Neutrophils % 62.6 % (37.0-80.0); Platelet Count 284 K/mm3 (142-424); Red Blood Count 3.99 M/mm3 (4.20-5.40); Red Cell Distribution Width 13.5 % (11.5-17.5); White Blood Count 8.1 K/mm3 (4.8-10.8)
[2018-08-27 11:11] LABS: Alanine Aminotransferase 26 U/L (12-78); Albumin Level 3.8 gm/dL (3.4-5.0); Alkaline Phosphatase 80 U/L (46-116); Anion Gap 14.8 mEq/L (5-15); Aspartate Amino Transferase 19 U/L (15-37); Bilirubin,Total 0.4 mg/dL (0.2-1.0); Blood Urea Nitrogen 30 mg/dL (7-18); Calcium 9.4 mg/dL (8.5-10.1); Carbon Dioxide 29 mmol/L (21.0-32.0); Chloride 102 mmol/L (98-107); Creatinine,Serum 1.11 mg/dL (0.55-1.02); Estimated Glomerular Filt Rate 50 ml/min (>60); Ferritin 43 ng/mL (8-388); GFR (African American) 60 ML/MIN (>60); Globulin 3.9 gm/dl (1.3-3.2); Glucose 146 mg/dL (74-106); Potassium 4.8 mmoL/L (3.5-5.1); Sodium 141 mmol/L (136-145); Total Protein,Serum 7.7 gm/dL (6.4-8.2)
[2018-08-28 09:18] LABS: Iron 67 ug/dL (27-139); UIBC 342 ug/dL (118-369)
[2018-08-28 10:03] LABS: AFP, Tumor Marker 5.5 ng/mL (0.0-8.3); Iron Saturation 16 % (15-55)
== END ==
PROVIDERS: PCP Internal Medicine Adolescent Medicine; Visit Provider Nurse Practitioner Acute Care
DX: K74.60 Unspecified cirrhosis of liver (principal)
CPT/HCPCS: 36415; 76705; 80053; 82105; 82140; 82728; 83540; 83550; 85025; 85610

== ENCOUNTER → 2018-10-15 13:06 | Outpatient (CLI) | payer MEDICARE, BC, SELFPAY ==
[2018-10-15 15:00] LABS: Alanine Aminotransferase 34 U/L (12-78); Albumin Level 3.7 gm/dL (3.4-5.0); Albumin/Globulin Ratio 1.1 (1.1-1.8); Alkaline Phosphatase 83 U/L (46-116); Anion Gap 15.3 mEq/L (5-15); Aspartate Amino Transferase 17 U/L (15-37); Bilirubin,Total 0.4 mg/dL (0.2-1.0); Blood Urea Nitrogen 33 mg/dL (7-18); Calcium 8.5 mg/dL (8.5-10.1); Carbon Dioxide 27 mmol/L (21.0-32.0); Chloride 102 mmol/L (98-107); Chol/HDL Ratio 3.8 (1-3.5); Cholesterol 144 mg/dL (140-200); Creatinine,Serum 1.25 mg/dL (0.55-1.02); Estimated Glomerular Filt Rate 43 ml/min (>60); GFR (African American) 52 ML/MIN (>60); Globulin 3.3 gm/dl (1.3-3.2); Glucose 133 mg/dL (74-106); HDL Cholesterol 38 mg/dL (29-89); LDL Cholesterol 77 mg/dL (0-130); Potassium 5.3 mmoL/L (3.5-5.1); Sodium 139 mmol/L (136-145); Triglycerides 145 mg/dL (30-200); VLDL Cholesterol 29 mg/dL (0-40)
== END ==
PROVIDERS: Visit Provider Nurse Practitioner Family
DX: E11.9 Type 2 diabetes mellitus without complications (principal); E78.5 Hyperlipidemia, unspecified; Z00.00 Encounter for general adult medical examination without abnormal findings; Z79.4 Long term (current) use of insulin
CPT/HCPCS: 36415; 80053; 80061; 83036

== ENCOUNTER → 2018-10-21 13:05 | Outpatient (CLI) | payer MEDICARE, BC, SELFPAY ==
[2018-10-21 14:33] LABS: Anion Gap 12.8 mEq/L (5-15); Blood Urea Nitrogen 28 mg/dL (7-18); Calcium 8.9 mg/dL (8.5-10.1); Carbon Dioxide 31 mmol/L (21.0-32.0); Chloride 102 mmol/L (98-107); Creatinine,Serum 1.01 mg/dL (0.55-1.02); Estimated Glomerular Filt Rate 55 ml/min (>60); GFR (African American) 67 ML/MIN (>60); Glucose 148 mg/dL (74-106); Potassium 4.8 mmoL/L (3.5-5.1); Sodium 141 mmol/L (136-145)
== END ==
PROVIDERS: Visit Provider Internal Medicine Adolescent Medicine
DX: E87.5 Hyperkalemia (principal)
CPT/HCPCS: 36415; 80048

== ENCOUNTER → 2018-11-17 09:43 | Outpatient (CLI) | payer MEDICARE, BC, SELFPAY ==
--- NOTE | 2018-11-17 09:45 | MM_ITS ---
MM Dig screening mamm BI w/CAD CAD Screening COMPARISON: Digital mammograms with CAD 08/30/2017 and 04/11/2015 INDICATION: There is a history of breast cancer in patient's niece diagnosed at age 33. TECHNIQUE: Standard CC and MLO images were obtained. R2 CAD reviewed. FINDINGS: The breasts are composed primarily of fat with very minimal scattered fibroglandular densities in each breast. There are multiple scattered benign-appearing microcalcifications and macrocalcifications in each breast primarily in the subareolar regions. There is no suspicious lesion and there are no suspicious microcalcifications. IMPRESSION: Fibrofatty parenchyma with no suspicious lesion seen. BI-RADS Category: 2 Benign Finding(s) RECOMMENDED FOLLOW-UP: 1YR - 1 YEAR FOLLOW-UP (A letter has been sent to the patient regarding results of the study.)
== END ==
PROVIDERS: PCP Internal Medicine Adolescent Medicine; Visit Provider Nurse Practitioner Family
DX: Z12.31 Encounter for screening mammogram for malignant neoplasm of breast (principal)
CPT/HCPCS: 77067

== ENCOUNTER → 2018-12-23 11:36 | Outpatient (POV) | payer MEDICARE, BC, SELFPAY | PROVIDERS: Visit Provider Internal Medicine | DX: Z00.00 Encounter for general adult medical examination without abnormal findings (principal) ==

== ENCOUNTER → 2019-01-13 14:15 | Outpatient (CLI) | payer MEDICARE, BC, SELFPAY ==
[2019-01-13 15:57] LABS: Alanine Aminotransferase 36 U/L (12-78); Albumin Level 3.9 gm/dL (3.4-5.0); Albumin/Globulin Ratio 1.1 (1.1-1.8); Alkaline Phosphatase 69 U/L (46-116); Anion Gap 13.1 mEq/L (5-15); Aspartate Amino Transferase 31 U/L (15-37); Bilirubin,Total 0.3 mg/dL (0.2-1.0); Blood Urea Nitrogen 17 mg/dL (7-18); Calcium 9.4 mg/dL (8.5-10.1); Carbon Dioxide 31 mmol/L (21.0-32.0); Chloride 99 mmol/L (98-107); Chol/HDL Ratio 3.7 (1-3.5); Cholesterol 151 mg/dL (140-200); Creatinine,Serum 0.94 mg/dL (0.55-1.02); Estimated Glomerular Filt Rate 60 ml/min (>60); GFR (African American) 73 ML/MIN (>60); Globulin 3.4 gm/dl (1.3-3.2); Glucose 143 mg/dL (74-106); HDL Cholesterol 41 mg/dL (29-89); LDL Cholesterol 83 mg/dL (0-130); Potassium 5.1 mmoL/L (3.5-5.1); Sodium 138 mmol/L (136-145); Total Protein,Serum 7.3 gm/dL (6.4-8.2); Triglycerides 135 mg/dL (30-200); VLDL Cholesterol 27 mg/dL (0-40)
[2019-01-13 18:38] LABS: Hemoglobin A1C 7.1 % (0.0-7.0)
== END ==
PROVIDERS: Visit Provider Nurse Practitioner Family
DX: Z00.00 Encounter for general adult medical examination without abnormal findings (principal); E11.9 Type 2 diabetes mellitus without complications; Z79.4 Long term (current) use of insulin; E78.5 Hyperlipidemia, unspecified
CPT/HCPCS: 36415; 80053; 80061; 83036

== ENCOUNTER → 2019-03-23 15:48 | Outpatient (POV) | payer MEDICARE, BC, SELFPAY | PROVIDERS: PCP Internal Medicine Adolescent Medicine; Visit Provider Nurse Practitioner Family | DX: Z00.00 Encounter for general adult medical examination without abnormal findings (principal) ==

== ENCOUNTER → 2019-03-27 09:10 | Outpatient (CLI) | payer MEDICARE, BC, SELFPAY ==
--- NOTE | 2019-03-27 09:15 | US_ITS ---
PROCEDURE: US ABDOMEN LIMITED CLINICAL INDICATION: CIRRHOSIS, FATTY LIVER IDSEASE,FUNCTIONAL DYSPEPSIA,IBS COMPARISON: [facility] US abdomen limited from 08/27/2018 FINDINGS: PANCREAS: The pancreas is poorly delineated due to cirrhotic liver and overlying bowel gas. LIVER: The liver has a cirrhotic appearance similar to the previous exam. Appropriate flow is present within a non dilated portal vein. No biliary dilatation.. No obvious hepatic mass RIGHT KIDNEY: 2.3 cm cyst noted over the lower pole of the right kidney GALLBLADDER: Prior cholecystectomy IMPRESSION: No change cirrhotic appearing liver and right renal cyst. Prior cholecystectomy Dictated by: Dereje Montana MD 03/27/2019 16:22 Electronically signed by Dereje Montana MD in [place] 03/27/2019 16:22
[2019-03-27 11:01] LABS: Basophils % 0.5 % (0.1-2.0); Eosinophils # 0.3 K/mm3 (0.0-0.4); Eosinophils % 4.3 % (0.1-12.0); Hematocrit 37.8 % (37.0-47.0); Hemoglobin 12.2 g/dL (12.2-16.2); Lymphocytes # 1.9 K/mm3 (0.7-4.5); Lymphocytes % 23.9 % (10-50); Mean Corpuscular HGB Conc 32.2 g/dL (31.8-35.4); Mean Corpuscular Hemoglobin 31.3 pg (27.0-31.2); Mean Corpuscular Volume 97.2 fl (81-99); Mean Platelet Volume 8.5 fl (7.4-10.4); Monocytes # 0.5 K/mm3 (0.1-1.0); Monocytes % 6.4 % (1.7-9.3); Neutrophils # 5.1 K/mm3 (1.8-7.8); Platelet Count 244 K/mm3 (142-424); Red Blood Count 3.89 M/mm3 (4.20-5.40); Red Cell Distribution Width 13.1 % (11.5-17.5); White Blood Count 7.9 K/mm3 (4.8-10.8)
[2019-03-27 11:19] LABS: INR 1.01 (0.9-1.1); Prothrombin Time 10.5 seconds (9.4-11.8)
[2019-03-27 11:39] LABS: Ammonia 13 umol/L (19-54)
[2019-03-27 12:38] LABS: Alanine Aminotransferase 19 U/L (12-78); Albumin Level 3.8 gm/dL (3.4-5.0); Albumin/Globulin Ratio 1.2 (1.1-1.8); Alkaline Phosphatase 63 U/L (46-116); Anion Gap 13.6 mEq/L (5-15); Aspartate Amino Transferase 14 U/L (15-37); Bilirubin,Total 0.3 mg/dL (0.2-1.0); Blood Urea Nitrogen 23 mg/dL (7-18); Calcium 9.3 mg/dL (8.5-10.1); Carbon Dioxide 32 mmol/L (21.0-32.0); Chloride 100 mmol/L (98-107); Estimated Glomerular Filt Rate 63 ml/min (>60); Ferritin 37 ng/mL (8-388); GFR (African American) 77 ML/MIN (>60); Globulin 3.3 gm/dl (1.3-3.2); Glucose 132 mg/dL (74-106); Potassium 4.6 mmoL/L (3.5-5.1); Sodium 141 mmol/L (136-145); Total Protein,Serum 7.1 gm/dL (6.4-8.2)
[2019-03-28 08:23] LABS: Iron 67 ug/dL (27-139); UIBC 303 ug/dL (118-369)
[2019-03-28 18:18] LABS: AFP, Tumor Marker 5.4 ng/mL (0.0-8.3); Iron Saturation 18 % (15-55)
== END ==
PROVIDERS: PCP Internal Medicine Adolescent Medicine; Visit Provider Nurse Practitioner Family
DX: K74.60 Unspecified cirrhosis of liver (principal); K76.9 Liver disease, unspecified; K30 Functional dyspepsia; K58.9 Irritable bowel syndrome, unspecified
CPT/HCPCS: 36415; 76705; 80053; 82105; 82140; 82728; 83540; 83550; 85025; 85610

== ENCOUNTER → 2019-10-27 12:12 | Outpatient (CLI) | payer MEDICARE, BC, SELFPAY ==
[2019-10-27 12:33] LABS: Basophils # 0.1 K/mm3 (0-0.2); Basophils % 0.6 % (0.1-2.0); Eosinophils # 0.5 K/mm3 (0.0-0.4); Eosinophils % 5.9 % (0.1-12.0); Hematocrit 38.4 % (37.0-47.0); Hemoglobin 12.9 g/dL (12.2-16.2); Lymphocytes # 2.2 K/mm3 (0.7-4.5); Lymphocytes % 27.7 % (10-50); Mean Corpuscular HGB Conc 33.6 g/dL (31.8-35.4); Mean Corpuscular Hemoglobin 31.9 pg (27.0-31.2); Mean Corpuscular Volume 94.8 fl (81-99); Mean Platelet Volume 8.2 fl (7.4-10.4); Monocytes # 0.6 K/mm3 (0.1-1.0); Neutrophils # 4.6 K/mm3 (1.8-7.8); Neutrophils % 58.9 % (37.0-80.0); Platelet Count 269 K/mm3 (142-424); Red Blood Count 4.05 M/mm3 (4.20-5.40); Red Cell Distribution Width 14.1 % (11.5-17.5); White Blood Count 7.9 K/mm3 (4.8-10.8)
[2019-10-27 13:25] LABS: Alanine Aminotransferase 22 U/L (12-78); Albumin Level 4.4 g/dl (3.5-5.0); Albumin/Globulin Ratio 1.4 (1.1-1.8); Alkaline Phosphatase 82 U/L (38-126); Anion Gap 16.4 mEq/L (5-15); Aspartate Amino Transferase 26 U/L (14-36); Bilirubin,Total 0.4 mg/dl (0.2-1.3); Blood Urea Nitrogen 43 mg/dl (7-17); Calcium 9.7 mg/dl (8.4-10.2); Carbon Dioxide 33 mmol/L (22.0-30.0); Chloride 95 mmol/L (98-107); Cholesterol 119 mg/dl (140-200); Estimated Glomerular Filt Rate 41 ml/min (>60); GFR (African American) 50 ML/MIN (>60); Globulin 3.2 g/dL (1.3-3.2); Glucose 150 mg/dl (74-100); HDL Cholesterol 40 mg/dl (40-60); Potassium 5.4 mmoL/L (3.5-5.1); Sodium 139 mmol/L (136-145); Total Protein,Serum 7.6 g/dl (6.3-8.2); Triglycerides 126 mg/dl (30-150); VLDL Cholesterol 25 mg/dL (0-40)
[2019-10-27 13:36] LABS: Direct LDL Cholesterol 73.63 mg/dL (100-129)
[2019-10-27 13:38] LABS: Hemoglobin A1C 7.1 % (4.0-6.0)
== END ==
PROVIDERS: Visit Provider Nurse Practitioner Family
DX: E78.5 Hyperlipidemia, unspecified (principal); J43.1 Panlobular emphysema; E11.9 Type 2 diabetes mellitus without complications; D50.9 Iron deficiency anemia, unspecified
CPT/HCPCS: 36415; 80053; 80061; 83036; 85025

== ENCOUNTER → 2019-11-18 07:36 | Outpatient (CLI) | payer MEDICARE, BC, SELFPAY ==
--- NOTE | 2019-11-18 07:42 | US_ITS ---
PROCEDURE: US ABDOMEN LIMITED CLINICAL INDICATION: CIRRHOSIS COMPARISON: US ABDOMEN LIMITED from 03/27/2019 FINDINGS: PANCREAS: Unremarkable. No obvious mass or abnormal fluid collection. No ductal dilatation LIVER: Liver appears enlarged . There is appropriate direction of blood flow within a non dilated portal vein. RIGHT KIDNEY: There is a small right ovarian cyst at 2 cm GALLBLADDER: Status post cholecystectomy IMPRESSION: Enlarged liver measuring at least 24 cm transverse. Dictated by: Dereje Montana MD 11/18/2019 17:08 Electronically signed by Dereje Montana MD in [place] 11/18/2019 17:08
--- NOTE | 2019-11-18 07:43 | MM_ITS ---
PROCEDURE: MM DIG SCREENING MAMM BI W/CAD DIGITAL BREAST TOMOSYNTHESIS INCLUDED Patient Age:64Y CLINICAL INDICATION: SCREENING 64-year-old. No new complaints.. The family history. A niece with breast cancer COMPARISON: [facility] DIG MAMM-SCREEN [facility]T from 04/11/2015 [facility] MM Dig screening mamm BI w/CAD from 08/30/2017 DIG MAMM-SCREEN YAMILET from 11/17/2018 TECHNIQUE: Standard CC and MLO images were obtained. R2 CAD reviewed. Bilateral digital breast tomosynthesis included. Additional axillary CC views both breast included FINDINGS: Low-density breast with diffuse fatty replacement. No new areas of significant concern. No new dominant nor suspicious mass.. No architectural distortion numerous benign spherical calcifications bilaterally: Likely reflecting oil cyst and dermal calcifications bilateral. These are shown slow progression through the years better benign features that can be followed Right breast: Stable. No new areas of concern Left breast: No new areas of significant concern. Areas minimal density reflecting overlapping fibroglandular tissue at the superior breast and deep central breast MLO view is seen to dissipates on the tomosynthesis images Bilateral follow-up 1 year recommended IMPRESSION: No significant change No new areas of significant concern. Bilateral follow-up 1 year recommended BI-RAD Category: 2 Benign Finding(s) FOLLOW-UP: 1YR 1 Year Follow-up the (A letter has been sent to the patient regarding results of the study.) Dictated by: Armani Roca MD 11/24/2019 08:27 Electronically signed by Armani Roca MD in [place] 11/24/2019 08:27
[2019-11-18 09:36] LABS: Ammonia < 9 umol/L (9-30)
[2019-11-18 09:44] LABS: Basophils # 0.6 K/mm3 (0-0.2); Eosinophils # 0.6 K/mm3 (0.0-0.4); Eosinophils % 6.6 % (0.1-12.0); Hematocrit 42.7 % (37.0-47.0); Hemoglobin 12.9 g/dL (12.2-16.2); Lymphocytes # 2.9 K/mm3 (0.7-4.5); Lymphocytes % 31.6 % (10-50); Mean Corpuscular HGB Conc 30.2 g/dL (31.8-35.4); Mean Corpuscular Hemoglobin 32.6 pg (27.0-31.2); Mean Corpuscular Volume 108.2 fl (81-99); Mean Platelet Volume 11.4 fl (7.4-10.4); Monocytes # 0.6 K/mm3 (0.1-1.0); Monocytes % 6.6 % (1.7-9.3); Neutrophils # 5.2 K/mm3 (1.8-7.8); Neutrophils % 55.3 % (37.0-80.0); Platelet Count 278 K/mm3 (142-424); Red Blood Count 3.94 M/mm3 (4.20-5.40); Red Cell Distribution Width 20.5 % (11.5-17.5); White Blood Count 9.3 K/mm3 (4.8-10.8)
[2019-11-18 09:49] LABS: INR 1.01 (0.9-1.1); Prothrombin Time 10.4 seconds (9.4-11.8)
[2019-11-18 10:30] LABS: Chloride 98 mmol/L (98-107); Potassium 5.7 mmoL/L (3.5-5.1); Sodium 136 mmol/L (136-145)
[2019-11-18 10:33] LABS: Alanine Aminotransferase 23 U/L (12-78); Albumin Level 4.1 g/dl (3.5-5.0); Albumin/Globulin Ratio 1.4 (1.1-1.8); Alkaline Phosphatase 67 U/L (38-126); Anion Gap 12.7 mEq/L (5-15); Aspartate Amino Transferase 32 U/L (14-36); Bilirubin,Total 0.5 mg/dl (0.2-1.3); Blood Urea Nitrogen 25 mg/dl (7-17); Calcium 9.2 mg/dl (8.4-10.2); Carbon Dioxide 31 mmol/L (22.0-30.0); Estimated Glomerular Filt Rate 56 ml/min (>60); GFR (African American) 68 ML/MIN (>60); Glucose 163 mg/dl (74-100); Iron 118 ug/dL (37-170); Total Protein,Serum 7.1 g/dl (6.3-8.2)
[2019-11-18 10:46] LABS: Total Iron Binding Capacity 458 ug/dL (265-497)
[2019-11-18 11:09] LABS: Ferritin 20.5 ng/ml (11.1-264)
[2019-11-19 11:34] LABS: AFP, Tumor Marker 4.3 ng/mL (0.0-8.3)
== END ==
PROVIDERS: PCP Internal Medicine Adolescent Medicine; Visit Provider Nurse Practitioner Family
DX: Z12.31 Encounter for screening mammogram for malignant neoplasm of breast (principal); K74.60 Unspecified cirrhosis of liver; K76.0 Fatty (change of) liver, not elsewhere classified
CPT/HCPCS: 36415; 76705; 77063; 77067; 80053; 82105; 82140; 82728; 83540; 83550; 85025; 85610

== ENCOUNTER → 2020-02-04 12:19 | Outpatient (CLI) | payer MEDICARE, BC, SELFPAY | PROVIDERS: PCP Internal Medicine Adolescent Medicine; Visit Provider Internal Medicine Cardiovascular Disease | DX: E11.9 Type 2 diabetes mellitus without complications (principal); E66.9 Obesity, unspecified; I11.0 Hypertensive heart disease with heart failure; I25.118 Atherosclerotic heart disease of native coronary artery with other forms of angina pectoris; I50.22 Chronic systolic (congestive) heart failure; J44.9 Chronic obstructive pulmonary disease, unspecified; R06.09 Other forms of dyspnea; R42 Dizziness and giddiness; R55 Syncope and collapse; Z79.4 Long term (current) use of insulin | CPT/HCPCS: 93270 ==

== ENCOUNTER → 2020-02-10 12:41 | Outpatient (CLI) | payer MEDICARE, BC, SELFPAY ==
--- NOTE | 2020-02-10 12:42 | CA_ITS ---
APPROVED REPORT EXAM: Comprehensive 2D, Doppler, and color-flow Echocardiogram Allergist/Immunologist Physician: Gaye Beatty CRT Ht: 5 ft 3 in Wt: 235lbs BSA: 2.07 BP: 120/48 mmHg Indications: Chest Pain, Congenital Heart Disease, Congestive Heart Failure, Atrial Fibrillation, Diabetes, Obesity, Syncope, Fatigue, CAD, Hypertension/HDD, GERD, IRAJ, HOME O2 2D Dimensions LVOT 1.97 cm (M/F) 1.5-2.5 M-Mode Dimensions RVDd 2.18 cm (0.9-2.6) LVDd 4.01 cm (3.5-5.7) LVDs 2.75 cm (3.5-5.7) IVSd 1.75 cm (0.6-1.1) PWd 0.93 cm (0.6-1.1) EF (Teich) 59.80% FS 31.40% EDV (Teich) 70.40 mL ESV (Teich) 28.30 mL LV Diastology E/A Ratio 0.64 Aortic Valve LVOT Max 153.00 (70-110 cm/s) LVOT VTI 31.31 cm Mitral Valve MV A Velocity 143.00 (40-130 cm/s) MV Mean Gr. 4.80 (<2mmHg) Left Ventricle Left atrium is mildly enlarged, left ventricle is normal size, mild concentric left ventricular hypertrophy, mated ejection fraction 55% with no regional wall motion abnormality, endocardial surfaces are poorly visualized, diastolic parameters are inconclusive. Right Ventricle Right atrium and right ventricular mildly enlarged with normal contractility. Aortic Valve Aortic valve is thickened and calcified with restriction in the leaflet mobility, morphology of the aortic valve is not well visualized, the mean gradient across aortic valve is 27 mmHg, this represents a moderate aortic stenosis, there is no significant aortic insufficiency. Mitral Valve Mitral valve leaflets are thickened and calcified with restriction in the leaflet mobility, the mean gradient across valve is 4.8 mmHg, valve area is not accurately calculated. A repeat study with better Doppler technique is recommended for calculation of the mitral valve area. There is mild mitral regurgitation. Tricuspid Valve Tricuspid valve is grossly normal, there is mild tricuspid regurgitation, tricuspid regurgitation jet velocity is inadequate for calculation of the right ventricular systolic pressure. Pulmonic Valve Pulmonic valve is poorly visualized. Great Vessels Aortic root is normal size. Pericardium No significant pericardial effusion noted. Conclusion 1. Biatrial enlargement, normal left ventricular size, mild concentric left ventricular hypertrophy, visually estimated ejection fraction 55% with no regional wall motion abnormality, diastolic parameters are inconclusive. 2. Thickened and calcified aortic valve with mean gradient across valve of 27 mmHg represents moderate aortic stenosis, there is no significant aortic insufficiency. 3. Abnormal mitral valve as described above, repeat study with better Doppler technique is recommended for the assessment of mitral stenosis, there is mild mitral regurgitation. 4. Mild tricuspid regurgitation. 5. No significant pericardial effusion noted. Electronically signed by : Lan Wheeler, 02/11/2020 11:05:43
== END ==
PROVIDERS: PCP Internal Medicine Adolescent Medicine; Visit Provider Internal Medicine Cardiovascular Disease
DX: E11.9 Type 2 diabetes mellitus without complications (principal); E66.9 Obesity, unspecified; I11.0 Hypertensive heart disease with heart failure; I25.118 Atherosclerotic heart disease of native coronary artery with other forms of angina pectoris; I50.22 Chronic systolic (congestive) heart failure; J44.9 Chronic obstructive pulmonary disease, unspecified; R06.09 Other forms of dyspnea; R42 Dizziness and giddiness; R55 Syncope and collapse; Z79.84 Long term (current) use of oral hypoglycemic drugs
CPT/HCPCS: 93306

== ENCOUNTER → 2020-03-28 10:09 | Outpatient (POV) | payer MEDICARE, BC, SELFPAY ==
[2020-03-28 12:03] LABS: Basophils % 0.4 % (0.1-2.0); Eosinophils # 0.3 K/mm3 (0.0-0.4); Eosinophils % 4.4 % (0.1-12.0); Hematocrit 37.9 % (37.0-47.0); Hemoglobin 11.9 g/dL (12.2-16.2); Lymphocytes # 1.6 K/mm3 (0.7-4.5); Lymphocytes % 24.1 % (10-50); Mean Corpuscular HGB Conc 31.3 g/dL (31.8-35.4); Mean Corpuscular Hemoglobin 31.7 pg (27.0-31.2); Mean Corpuscular Volume 101.2 fl (81-99); Mean Platelet Volume 8.3 fl (7.4-10.4); Monocytes # 0.5 K/mm3 (0.1-1.0); Monocytes % 7.1 % (1.7-9.3); Neutrophils # 4.3 K/mm3 (1.8-7.8); Platelet Count 240 K/mm3 (142-424); Red Blood Count 3.75 M/mm3 (4.20-5.40); Red Cell Distribution Width 13.6 % (11.5-17.5); White Blood Count 6.7 K/mm3 (4.8-10.8)
[2020-03-28 12:09] LABS: Ammonia < 9 umol/L (9-30)
[2020-03-28 12:51] LABS: Chloride 98 mmol/L (98-107); Potassium 5.3 mmoL/L (3.5-5.1); Sodium 140 mmol/L (136-145)
[2020-03-28 12:53] LABS: Blood Urea Nitrogen 19 mg/dl (7-17); Estimated Glomerular Filt Rate 63 ml/min (>60); GFR (African American) 76 ML/MIN (>60)
[2020-03-28 12:54] LABS: Alanine Aminotransferase 26 U/L (12-78); Albumin/Globulin Ratio 1.3 (1.1-1.8); Alkaline Phosphatase 76 U/L (38-126); Anion Gap 15.3 mEq/L (5-15); Aspartate Amino Transferase 31 U/L (14-36); Bilirubin,Total 0.4 mg/dl (0.2-1.3); Calcium 9.5 mg/dl (8.4-10.2); Carbon Dioxide 32 mmol/L (22.0-30.0); Glucose 186 mg/dl (74-100); Iron 117 ug/dL (37-170)
[2020-03-28 13:02] LABS: INR 0.99 (0.9-1.1)
[2020-03-28 13:03] LABS: Total Iron Binding Capacity 429 ug/dL (265-497)
[2020-03-28 13:29] LABS: Ferritin 18.9 ng/ml (11.1-264)
[2020-03-29 10:53] LABS: AFP, Tumor Marker 5.1 ng/mL (0.0-8.3)
== END ==
PROVIDERS: Visit Provider Nurse Practitioner Family
DX: K74.60 Unspecified cirrhosis of liver (principal)
CPT/HCPCS: 36415; 80053; 82105; 82140; 82728; 83540; 83550; 85025; 85610

== ENCOUNTER → 2020-03-28 12:36 | Outpatient (CLI) | payer MEDICARE, BC, SELFPAY ==
[2020-03-28 13:55] VITALS: PULSE 85; PULSE 90
== END ==
PROVIDERS: PCP Internal Medicine Adolescent Medicine; Visit Provider Internal Medicine Pulmonary Disease
DX: R06.09 Other forms of dyspnea (principal); R07.89 Other chest pain; R42 Dizziness and giddiness; R55 Syncope and collapse; R74.8 Abnormal levels of other serum enzymes; R77.2 Abnormality of alphafetoprotein; K74.60 Unspecified cirrhosis of liver
CPT/HCPCS: 36415; 80053; 82105; 82140; 82728; 83540; 83550; 85025; 85610; 94060; 94618; 94640; 94726; 94729

== ENCOUNTER → 2020-03-31 07:48 | Outpatient (CLI) | payer MEDICARE, BC, SELFPAY ==
--- NOTE | 2020-03-31 07:52 | US_ITS ---
PROCEDURE: US ABDOMEN LIMITED CLINICAL INDICATION: CIRRHOSIS,DYSPHAGIA,FATTY LIVER COMPARISON: US US ABDOMEN LIMITED from 11/18/2019 FINDINGS: PANCREAS: Unremarkable. No obvious mass or abnormal fluid collection. No ductal dilatation LIVER: There is coarse echogenicity of the liver with some mild nodularity of the liver margin. These findings may be seen with cirrhosis. There is appropriate direction of blood flow within the non dilated portal vein. The liver remains enlarged at 26 cm transverse RIGHT KIDNEY: There is a 2 cm cyst along the lower pole of the right kidney. GALLBLADDER: Prior cholecystectomy. Common bile duct is normal at 3 mm. IMPRESSION: Overall no change cirrhotic appearance of the liver with hepatomegaly. Appropriate direction of blood flow within non dilated portal vein. Dictated by: Dereje Montana MD 03/31/2020 18:19 Dereje Montana MD in [place] 03/31/2020 18:19
== END ==
PROVIDERS: PCP Internal Medicine Adolescent Medicine; Visit Provider Nurse Practitioner Family
DX: K74.60 Unspecified cirrhosis of liver (principal); K76.9 Liver disease, unspecified; K30 Functional dyspepsia; K58.9 Irritable bowel syndrome, unspecified; R13.10 Dysphagia, unspecified
CPT/HCPCS: 76705

== ENCOUNTER → 2020-04-05 11:03 | Outpatient (CLI) | payer MEDICARE, BC, SELFPAY ==
[2020-04-05 11:34] LABS: Basophils % 0.6 % (0.1-2.0); Eosinophils # 0.4 K/mm3 (0.0-0.4); Eosinophils % 5.7 % (0.1-12.0); Hematocrit 37.9 % (37.0-47.0); Hemoglobin 11.8 g/dL (12.2-16.2); Mean Corpuscular HGB Conc 31.2 g/dL (31.8-35.4); Mean Corpuscular Volume 99.5 fl (81-99); Mean Platelet Volume 8.2 fl (7.4-10.4); Monocytes # 0.6 K/mm3 (0.1-1.0); Monocytes % 8.3 % (1.7-9.3); Neutrophils # 3.8 K/mm3 (1.8-7.8); Neutrophils % 56.3 % (37.0-80.0); Platelet Count 291 K/mm3 (142-424); Red Blood Count 3.82 M/mm3 (4.20-5.40); Red Cell Distribution Width 13.8 % (11.5-17.5); White Blood Count 6.8 K/mm3 (4.8-10.8)
[2020-04-05 12:06] LABS: Hemoglobin A1C 6.7 % (4.0-6.0)
[2020-04-05 13:13] LABS: Chloride 98 mmol/L (98-107); Sodium 137 mmol/L (136-145)
[2020-04-05 13:14] LABS: Potassium 5.6 mmoL/L (3.5-5.1)
[2020-04-05 13:16] LABS: Alanine Aminotransferase 24 U/L (12-78); Albumin Level 4.2 g/dl (3.5-5.0); Albumin/Globulin Ratio 1.4 (1.1-1.8); Alkaline Phosphatase 67 U/L (38-126); Anion Gap 14.6 mEq/L (5-15); Aspartate Amino Transferase 28 U/L (14-36); Bilirubin,Total 0.5 mg/dl (0.2-1.3); Blood Urea Nitrogen 35 mg/dl (7-17); Carbon Dioxide 30 mmol/L (22.0-30.0); Cholesterol 160 mg/dl (140-200); Estimated Glomerular Filt Rate 50 ml/min (>60); GFR (African American) 61 ML/MIN (>60); Globulin 2.9 g/dL (1.3-3.2); Total Protein,Serum 7.1 g/dl (6.3-8.2); Triglycerides 140 mg/dl (30-150); VLDL Cholesterol 28 mg/dL (0-40)
[2020-04-05 13:17] LABS: Calcium 9.4 mg/dl (8.4-10.2); Glucose 144 mg/dl (74-100); HDL Cholesterol 40 mg/dl (40-60)
[2020-04-05 13:28] LABS: Direct LDL Cholesterol 92.95 mg/dL (100-129)
== END ==
PROVIDERS: Visit Provider Nurse Practitioner Family
DX: D50.9 Iron deficiency anemia, unspecified (principal); R30.0 Dysuria; E11.9 Type 2 diabetes mellitus without complications; Z79.84 Long term (current) use of oral hypoglycemic drugs
CPT/HCPCS: 36415; 80053; 80061; 83036; 85025

== ENCOUNTER → 2020-04-21 12:50 | Outpatient (CLI) | payer MEDICARE, BC, SELFPAY ==
--- NOTE | 2020-04-21 12:50 | CT_ITS ---
PROCEDURE: CT LUNG SCREENING CLINICAL INDICATION: Lung cancer screening Former smoker Quit smoking 7 years ago 90 pack year smoking history COMPARISON: CT CHESTWO CT chest wo con from 12/20/2017 TECHNIQUE: The exam was performed on a GE Light Speed [address] scanner using 2.90 mGy CTDI. A low dose helical CT CHEST was performed on a multi-detector scanner. All CT scans at the facility use one or more dose reduction, viz: automated exposure control, ma/kV adjustment per patient size (including targeted exams where dose is matched to indication, i.e. head), or iterative reconstruction technique. The LDCT was performed in a facility that meets the criteria for the screening program. Data regarding this exam was submitted to ACR which is an approved registry. The order for this exam indicates that it came as a result of a lung cancer screening counseling shard decision-making visit that included all the elements required of such a visit including smoking cessation. The radiologist interpreting this exam meets the CMS criteria for the LDCT lung cancer screening program. The exam is reported using the Lung-RADS classification scale and reported to the ACR registry. NOTE: This study was performed for the specific purposes of lung cancer screening and is not an alternative to diagnostic chest CT. RADIATION DOSE: CTDI vol(CT dose Index-volume) = 2.90mG DLP (Dose Length Product) = 107.07 mGcm FINDINGS: COPD changes. There is a stable 4 mm left lower lobe nodule medially. No new nodules are identified. OTHER FINDINGS: Scattered small mediastinal nodes. Coronary artery calcifications. Aortic valve calcification. Mitral valve calcification. IMPRESSION: Lung-RADS Category 2 Benign Appearance or Behavior Follow-up: Continue annual screening with LDCT in 12 months Calcifications of the aortic valve mitral valve and coronary arteries noted. Dictated by: Dereje Montana MD 05/02/2020 11:24 Dereje Montana MD in [place] 05/02/2020 11:24
== END ==
PROVIDERS: PCP Internal Medicine Adolescent Medicine; Visit Provider Internal Medicine Pulmonary Disease
DX: Z87.891 Personal history of nicotine dependence (principal); Z12.2 Encounter for screening for malignant neoplasm of respiratory organs

== ENCOUNTER 2020-04-26 14:08 | Outpatient (RCR) | payer MEDICARE, BC, SELFPAY | END 2020-07-20 13:53 | disposition home or self-care (01) | LOC: PT 14:08 | PROVIDERS: Visit Provider Internal Medicine Pulmonary Disease | DX: J44.9 Chronic obstructive pulmonary disease, unspecified (principal) | CPT/HCPCS: G0424 ==

== ENCOUNTER → 2020-05-10 14:29 | Outpatient (CLI) | payer MEDICARE, BC, SELFPAY ==
--- NOTE | 2020-05-10 14:30 | CT_ITS ---
PROCEDURE: CT HEAD/BRAIN WO CON CLINICAL INDICATION: syncope Syncope and dizziness with head injury and pain COMPARISON: No exams were available for comparison TECHNIQUE: Axial images obtained. All CT scans at the facility use one or more dose reduction, viz: automated exposure control, ma/kV adjustment per patient size (including targeted exams where dose is matched to indication, i.e. head), or iterative reconstruction technique. FINDINGS: No midline shift, mass effect, intracranial hemorrhage, hydrocephalus, or extra-axial fluid collection is evident. There is generalized atrophy with hypoattenuation of the periventricular white matter consistent with microangiopathic changes. The calvarium has an unremarkable appearance. No mastoid effusion. No sinus air-fluid level. IMPRESSION: No acute intracranial finding Dictated by: Dereje Montana MD 05/10/2020 18:00 Dereje Montana MD in [place] 05/10/2020 18:00
== END ==
PROVIDERS: PCP Nurse Practitioner Family; Visit Provider Internal Medicine Cardiovascular Disease
DX: E66.9 Obesity, unspecified (principal); I11.0 Hypertensive heart disease with heart failure; I25.118 Atherosclerotic heart disease of native coronary artery with other forms of angina pectoris; I48.0 Paroxysmal atrial fibrillation; I50.22 Chronic systolic (congestive) heart failure; J44.9 Chronic obstructive pulmonary disease, unspecified; K21.9 Gastro-esophageal reflux disease without esophagitis; R06.09 Other forms of dyspnea; R42 Dizziness and giddiness; R55 Syncope and collapse
CPT/HCPCS: 70450

== ENCOUNTER → 2020-06-01 15:42 | Outpatient (CLI) | payer MEDICARE, BC, SELFPAY ==
[2020-06-01 16:30] LABS: Lactic Acid 1.7 mmol/L (0.7-2.1)
[2020-06-01 17:10] LABS: Anion Gap 9.8 mEq/L (5-15); Blood Urea Nitrogen 23 mg/dl (7-17); Calcium 9.2 mg/dl (8.4-10.2); Carbon Dioxide 36 mmol/L (22.0-30.0); Chloride 93 mmol/L (98-107); Estimated Glomerular Filt Rate 50 ml/min (>60); GFR (African American) 61 ML/MIN (>60); Glucose 293 mg/dl (74-100); Potassium 4.8 mmoL/L (3.5-5.1); Sodium 134 mmol/L (136-145)
[2020-06-05 18:13] LABS: Immunoglobulin E, Total 10 IU/mL (6-495)
[2020-06-06 12:14] LABS: D001-IgE D pteronyssinus <0.10 kU/L (Class 0); D002-IgE D farinae <0.10 kU/L (Class 0); E001-IgE Cat Dander <0.10 kU/L (Class 0); E005-IgE Dog Dander <0.10 kU/L (Class 0); G002-IgE Bermuda Grass <0.10 kU/L (Class 0); G006-IgE Timothy Grass <0.10 kU/L (Class 0); I006-IgE Cockroach, German <0.10 kU/L (Class 0); Immunoglobulin E, Total 8 IU/mL (6-495); M001-IgE Penicillium chrysogen <0.10 kU/L (Class 0); M002-IgE Cladosporium herbarum <0.10 kU/L (Class 0); M003-IgE Aspergillus fumigatus <0.10 kU/L (Class 0); M006-IgE Alternaria alternata <0.10 kU/L (Class 0); T001-IgE Maple/Box Elder <0.10 kU/L (Class 0); T006-IgE Cedar, Mountain <0.10 kU/L (Class 0); T007-IgE Oak, White <0.10 kU/L (Class 0); T008-IgE Elm, American <0.10 kU/L (Class 0); T010-IgE Walnut <0.10 kU/L (Class 0); T011-IgE Maple Leaf Sycamore <0.10 kU/L (Class 0); T014-IgE Cottonwood <0.10 kU/L (Class 0); T015-IgE Ash, White <0.10 kU/L (Class 0); T022-IgE Pecan, Hickory <0.10 kU/L (Class 0); T070-IgE White Mulberry <0.10 kU/L (Class 0); W001-IgE Ragweed, Short <0.10 kU/L (Class 0); W011-IgE Thistle, Russian <0.10 kU/L (Class 0); W014-IgE Pigweed, Common <0.10 kU/L (Class 0); W016-IgE Rough Marshelder <0.10 kU/L (Class 0)
[2020-06-06 12:20] LABS: E072-IgE Mouse Urine <0.10 kU/L (Class 0)
[2020-06-08 10:35] LABS: Strongyloides IgG Antibody Negative (Negative)
== END ==
PROVIDERS: Internal Medicine Adolescent Medicine; Visit Provider Internal Medicine Pulmonary Disease
DX: R06.2 Wheezing (principal); D72.19 Other eosinophilia; J44.9 Chronic obstructive pulmonary disease, unspecified; E11.9 Type 2 diabetes mellitus without complications; Z79.4 Long term (current) use of insulin
CPT/HCPCS: 36415; 80048; 82785; 83605; 86003; 86682

== ENCOUNTER → 2020-08-17 14:19 | Outpatient (CLI) | payer MEDICARE, BC, SELFPAY ==
[2020-08-17 15:00] LABS: Basophils # 0.1 K/mm3 (0-0.2); Basophils % 0.9 % (0.1-2.0); Eosinophils # 0.5 K/mm3 (0.0-0.4); Eosinophils % 9.2 % (0.1-12.0); Hematocrit 29.5 % (37.0-47.0); Hemoglobin 9.5 g/dL (12.2-16.2); Lymphocytes # 1.7 K/mm3 (0.7-4.5); Lymphocytes % 33.2 % (10-50); Mean Corpuscular HGB Conc 32.2 g/dL (31.8-35.4); Mean Corpuscular Hemoglobin 32.1 pg (27.0-31.2); Mean Corpuscular Volume 99.7 fl (81-99); Mean Platelet Volume 7.9 fl (7.4-10.4); Monocytes # 0.3 K/mm3 (0.1-1.0); Monocytes % 6.5 % (1.7-9.3); Neutrophils # 2.6 K/mm3 (1.8-7.8); Neutrophils % 50.1 % (37.0-80.0); Platelet Count 285 K/mm3 (142-424); Red Blood Count 2.96 M/mm3 (4.20-5.40); White Blood Count 5.2 K/mm3 (4.8-10.8)
[2020-08-17 15:02] LABS: Hemoglobin A1C 4.8 % (4.0-6.0)
[2020-08-17 15:52] LABS: Alanine Aminotransferase 22 U/L (12-78); Albumin Level 3.7 g/dl (3.5-5.0); Albumin/Globulin Ratio 1.4 (1.1-1.8); Alkaline Phosphatase 64 U/L (38-126); Anion Gap 14.6 mEq/L (5-15); Aspartate Amino Transferase 34 U/L (14-36); Bilirubin,Total 0.3 mg/dl (0.2-1.3); Blood Urea Nitrogen 14 mg/dl (7-17); Calcium 9.2 mg/dl (8.4-10.2); Carbon Dioxide 31 mmol/L (22.0-30.0); Chloride 97 mmol/L (98-107); Chol/HDL Ratio 2.7 (1-3.5); Cholesterol 123 mg/dl (140-200); Estimated Glomerular Filt Rate 63 ml/min (>60); GFR (African American) 76 ML/MIN (>60); Globulin 2.6 g/dL (1.3-3.2); Glucose 124 mg/dl (74-100); HDL Cholesterol 46 mg/dl (40-60); Potassium 5.6 mmoL/L (3.5-5.1); Sodium 137 mmol/L (136-145); Total Protein,Serum 6.3 g/dl (6.3-8.2); Triglycerides 166 mg/dl (30-150); VLDL Cholesterol 33 mg/dL (0-40)
== END ==
PROVIDERS: Visit Provider Internal Medicine Adolescent Medicine
DX: I10 Essential (primary) hypertension (principal); D50.9 Iron deficiency anemia, unspecified; E11.9 Type 2 diabetes mellitus without complications; Z79.84 Long term (current) use of oral hypoglycemic drugs
CPT/HCPCS: 36415; 80053; 80061; 83036; 85025

== ENCOUNTER → 2020-11-07 07:43 | Outpatient (CLI) | payer MEDICARE, BC, SELFPAY ==
--- NOTE | 2020-11-07 07:49 | US_ITS ---
PROCEDURE: US ABDOMEN LIMITED CLINICAL INDICATION: CIRRHOSIS,FATTY LIVER,IBS,DYSPHAGIA,DYSPEPSIA COMPARISON: US US ABDOMEN LIMITED from 03/31/2020 FINDINGS: PANCREAS: Unremarkable. No obvious mass or abnormal fluid collection. No ductal dilatation LIVER: There is coarse echogenicity of the liver with mild irregularity of the liver margin suggesting cirrhosis. There is appropriate direction of blood flow within non dilated portal vein. No focal mass demonstrated. There is mild hepatomegaly with maximum transverse dimension of 22 cm.. RIGHT KIDNEY: Cortical thinning of the right kidney is noted with a 2.5 cm cyst along the lower pole of the right kidney and an 8 mm cyst in the upper pole GALLBLADDER: Prior cholecystectomy. Common bile duct is normal. IMPRESSION: Findings compatible with cirrhosis with appropriate direction of blood flow within non dilated portal vein overall not significantly changed. Dictated by: Dereje Montana MD 11/07/2020 10:55 Dereje Montana MD in [place] 11/07/2020 10:55
[2020-11-07 09:14] LABS: Basophils # 0.1 K/mm3 (0-0.2); Basophils % 0.6 % (0.1-2.0); Eosinophils # 0.5 K/mm3 (0.0-0.4); Eosinophils % 3.9 % (0.1-12.0); Hematocrit 27.1 % (37.0-47.0); Hemoglobin 8.6 g/dL (12.2-16.2); Lymphocytes # 2.5 K/mm3 (0.7-4.5); Lymphocytes % 21.9 % (10-50); Mean Corpuscular HGB Conc 31.8 g/dL (31.8-35.4); Mean Corpuscular Hemoglobin 29.6 pg (27.0-31.2); Mean Corpuscular Volume 93.3 fl (81-99); Mean Platelet Volume 7.4 fl (7.4-10.4); Monocytes # 1.1 K/mm3 (0.1-1.0); Monocytes % 9.1 % (1.7-9.3); Neutrophils # 7.5 K/mm3 (1.8-7.8); Neutrophils % 64.6 % (37.0-80.0); Platelet Count 593 K/mm3 (142-424); Red Cell Distribution Width 14.7 % (11.5-17.5); White Blood Count 11.6 K/mm3 (4.8-10.8)
[2020-11-07 09:52] LABS: Ammonia < 9 umol/L (9-30)
[2020-11-07 10:24] LABS: Chloride 90 mmol/L (98-107); Potassium 5.8 mmoL/L (3.5-5.1); Sodium 133 mmol/L (136-145)
[2020-11-07 10:27] LABS: Alanine Aminotransferase 19 U/L (12-78); Albumin Level 3.5 g/dl (3.5-5.0); Albumin/Globulin Ratio 1.1 (1.1-1.8); Alkaline Phosphatase 106 U/L (38-126); Anion Gap 13.8 mEq/L (5-15); Aspartate Amino Transferase 35 U/L (14-36); Bilirubin,Total 0.3 mg/dl (0.2-1.3); Blood Urea Nitrogen 28 mg/dl (7-17); Calcium 8.8 mg/dl (8.4-10.2); Carbon Dioxide 35 mmol/L (22.0-30.0); Estimated Glomerular Filt Rate 56 ml/min (>60); GFR (African American) 67 ML/MIN (>60); Globulin 3.2 g/dL (1.3-3.2); Glucose 124 mg/dl (74-100); Iron 59 ug/dL (37-170); Total Protein,Serum 6.7 g/dl (6.3-8.2)
[2020-11-07 10:37] LABS: Total Iron Binding Capacity 351 ug/dL (265-497)
[2020-11-07 10:38] LABS: Prothrombin Time 11.9 seconds (10.1-12.5)
[2020-11-07 11:03] LABS: INR 1.01 (0.9-1.1)
[2020-11-08 06:14] LABS: AFP, Tumor Marker 2.6 ng/mL (0.0-8.3)
== END ==
PROVIDERS: PCP Nurse Practitioner Family; Visit Provider Nurse Practitioner Family
DX: K74.60 Unspecified cirrhosis of liver (principal); K76.9 Liver disease, unspecified; K30 Functional dyspepsia; K58.9 Irritable bowel syndrome, unspecified; R13.10 Dysphagia, unspecified
CPT/HCPCS: 36415; 76705; 80053; 82105; 82140; 82728; 83540; 83550; 85025; 85610

== ENCOUNTER → 2020-11-16 08:47 | Outpatient (CLI) | payer MEDICARE, BC, SELFPAY | PROVIDERS: Visit Provider Internal Medicine Gastroenterology | DX: Z01.812 Encounter for preprocedural laboratory examination (principal); Z20.822 Contact with and (suspected) exposure to COVID-19; Z13.810 Encounter for screening for upper gastrointestinal disorder | CPT/HCPCS: U0003 ==

== ENCOUNTER → 2021-01-27 11:53 | Outpatient (CLI) | payer MEDICARE, BC, SELFPAY ==
[2021-01-27 12:28] LABS: Basophils % 0.6 % (0.1-2.0); Eosinophils # 0.2 K/mm3 (0.0-0.4); Eosinophils % 2.3 % (0.1-12.0); Hematocrit 35.8 % (37.0-47.0); Hemoglobin 11.1 g/dL (12.2-16.2); Lymphocytes # 1.5 K/mm3 (0.7-4.5); Lymphocytes % 22.8 % (10-50); Mean Corpuscular HGB Conc 30.9 g/dL (31.8-35.4); Mean Corpuscular Hemoglobin 30.8 pg (27.0-31.2); Mean Corpuscular Volume 99.6 fl (81-99); Mean Platelet Volume 7.9 fl (7.4-10.4); Monocytes # 0.4 K/mm3 (0.1-1.0); Monocytes % 6.3 % (1.7-9.3); Neutrophils # 4.4 K/mm3 (1.8-7.8); Platelet Count 302 K/mm3 (142-424); Red Blood Count 3.59 M/mm3 (4.20-5.40); Red Cell Distribution Width 14.7 % (11.5-17.5); White Blood Count 6.4 K/mm3 (4.8-10.8)
[2021-01-27 12:58] LABS: Alanine Aminotransferase 52 U/L (12-78); Albumin Level 3.5 g/dl (3.5-5.0); Albumin/Globulin Ratio 1.2 (1.1-1.8); Alkaline Phosphatase 157 U/L (38-126); Anion Gap 17.6 mEq/L (5-15); Aspartate Amino Transferase 85 U/L (14-36); Bilirubin,Total 0.4 mg/dl (0.2-1.3); Blood Urea Nitrogen 15 mg/dl (7-17); Calcium 8.9 mg/dl (8.4-10.2); Carbon Dioxide 30 mmol/L (22.0-30.0); Chloride 95 mmol/L (98-107); Chol/HDL Ratio 3.3 (1-3.5); Cholesterol 135 mg/dl (140-200); Estimated Glomerular Filt Rate 84 ml/min (>60); GFR (African American) 102 ML/MIN (>60); Glucose 122 mg/dl (74-100); HDL Cholesterol 41 mg/dl (40-60); Magnesium 1.4 mg/dl (1.6-2.3); Potassium 4.6 mmoL/L (3.5-5.1); Sodium 138 mmol/L (136-145); Total Protein,Serum 6.5 g/dl (6.3-8.2); Triglycerides 158 mg/dl (30-150); VLDL Cholesterol 32 mg/dL (0-40)
[2021-01-27 13:10] LABS: Direct LDL Cholesterol 67.55 mg/dL (100-129)
== END ==
PROVIDERS: Visit Provider Internal Medicine Adolescent Medicine
DX: E78.5 Hyperlipidemia, unspecified (principal); D50.9 Iron deficiency anemia, unspecified
CPT/HCPCS: 36415; 80053; 80061; 83735; 85025

== ENCOUNTER → 2021-02-06 15:27 | Outpatient (POV) | payer MEDICARE, BC, SELFPAY | PROVIDERS: Visit Provider Nurse Practitioner Family | DX: Z00.00 Encounter for general adult medical examination without abnormal findings (principal) ==

== ENCOUNTER → 2021-04-19 07:49 | Outpatient (CLI) | payer MEDICARE, SELFPAY ==
--- NOTE | 2021-04-19 07:54 | US_ITS ---
PROCEDURE: US ABDOMEN LIMITED CLINICAL INDICATION: CIRRHOSIS,IBS,DYSPEPSIA,ANEMIA,FATTY LIVER DISEASE COMPARISON: CT CHESTWO CT chest wo con from 12/20/[address] LUNG SCREENING from 04/21/2020 US US ABDOMEN LIMITED from 11/07/2020 FINDINGS: PANCREAS: Unremarkable. No obvious mass or abnormal fluid collection. No ductal dilatation LIVER: There is coarse echogenicity of the liver. There is appropriate direction of blood flow within a non dilated portal vein. No biliary dilatation. No focal liver lesion demonstrated. Minimal irregularity of the liver surface RIGHT KIDNEY: Small right renal cyst at 2 cm. GALLBLADDER: Prior cholecystectomy. Common bile duct is normal at 3 mm. IMPRESSION: Overall no change in the coarse echogenicity of the liver with minimal irregularity of the liver surface suggesting cirrhosis with appropriate direction of blood flow within a non dilated portal vein. Dictated by: Dereje Montana MD 04/19/2021 18:10 Dereje Montana MD in [place] 04/19/2021 18:10
== END ==
PROVIDERS: PCP Nurse Practitioner Family; Visit Provider Nurse Practitioner Family
DX: K76.9 Liver disease, unspecified (principal); K74.60 Unspecified cirrhosis of liver; K58.9 Irritable bowel syndrome, unspecified; K30 Functional dyspepsia; D64.9 Anemia, unspecified
CPT/HCPCS: 76705

== ENCOUNTER → 2021-05-09 15:45 | Outpatient (CLI) | payer MEDICARE, SELFPAY ==
[2021-05-09 16:38] LABS: Basophils # 0.1 K/mm3 (0-0.2); Basophils % 0.7 % (0.1-2.0); Eosinophils # 0.6 K/mm3 (0.0-0.4); Eosinophils % 7.4 % (0.1-12.0); Hematocrit 39.3 % (37.0-47.0); Hemoglobin 12.8 g/dL (12.2-16.2); Lymphocytes # 2.1 K/mm3 (0.7-4.5); Mean Corpuscular HGB Conc 32.6 g/dL (31.8-35.4); Mean Corpuscular Hemoglobin 29.5 pg (27.0-31.2); Mean Corpuscular Volume 90.6 fl (81-99); Mean Platelet Volume 7.8 fl (7.4-10.4); Monocytes # 0.5 K/mm3 (0.1-1.0); Monocytes % 7.1 % (1.7-9.3); Neutrophils # 4.3 K/mm3 (1.8-7.8); Neutrophils % 56.9 % (37.0-80.0); Platelet Count 206 K/mm3 (142-424); Red Blood Count 4.34 M/mm3 (4.20-5.40); Red Cell Distribution Width 14.2 % (11.5-17.5); White Blood Count 7.6 K/mm3 (4.8-10.8)
[2021-05-10 10:21] LABS: Microscopic, Urine URINE MICROSCOPIC (MICROSCOPIC)
[2021-05-10 10:38] LABS: Appearance,Urine CLEAR (Clear); Bilirubin,Urine Negative (Negative); Blood, Urine 3+ (Negative); Color,Urine YELLOW (Yellow); Glucose,Urine (UA) Negative (Negative); Ketones,Urine Negative (Negative); Leukocyte Esterase,Urine 2+ (Negative); Nitrate,Urine Negative (Negative); PH,Urine 5.5 (5.0-8.5); Protein,Urine 1+ (Negative); Specific Gravity, Urine >= 1.030 (1.005-1.030); Urobilinogen,Urine 0.2 EU/dl (0.2)
[2021-05-10 11:04] LABS: Bacteria,Urine Trace /lpf; Squamous Epithelial Cell,Urine Occasional #/hpf (0-5)
== END ==
PROVIDERS: Visit Provider Internal Medicine Adolescent Medicine
DX: R30.0 Dysuria (principal); B96.1 Klebsiella pneumoniae [K. pneumoniae] as the cause of diseases classified elsewhere; I50.9 Heart failure, unspecified
CPT/HCPCS: 36415; 81001; 85025; 87086; 87088; 87186

== ENCOUNTER → 2021-05-09 21:00 | Outpatient (CLI) | payer MEDICARE, SELFPAY | PROVIDERS: Visit Provider Internal Medicine Adolescent Medicine | DX: K76.0 Fatty (change of) liver, not elsewhere classified (principal) | CPT/HCPCS: 81001; 87086 ==

== ENCOUNTER → 2021-05-16 15:06 | Outpatient (CLI) | payer MEDICARE, SELFPAY ==
--- NOTE | 2021-05-16 15:07 | MM_ITS ---
PROCEDURE INFORMATION: Exam: MG Bilateral Screening 3D Mammography Exam date and time: 05/16/2021 3:07 PM Age: 65 years old Clinical indication: Screening mammogram TECHNIQUE: Imaging protocol: Bilateral screening tomosynthesis and 2D mammography including computer-aided detection (CAD) when performed. COMPARISON: 1. MG MM DIG SCREENING MAMM BI W/CAD 11/18/2019 7:59 AM 2. MG DIG MAMM-SCREEN YAMILET 11/17/2018 10:04 AM 3. MG [facility] MM Dig screening mamm BI w/CAD 08/30/2017 9:48 AM 4. MG [facility] DIG MAMM-SCREEN YAMILET 04/11/2015 10:07 AM FINDINGS: MAMMOGRAPHY: Breast composition: There are scattered areas of fibroglandular density. Mass: None. Architectural distortion: No new or suspicious architectural distortion. Calcifications: Stable benign-appearing calcifications are present. No new or suspicious cluster of microcalcifications have developed. Asymmetric density: No new or suspicious asymmetric density is present Skin thickening: None. Axillary adenopathy: None. IMPRESSION: No mammographic evidence of malignancy. Recommend annual screening mammography unless otherwise clinically indicated. ASSESSMENT: BI-RADS category 2: Benign
== END ==
PROVIDERS: PCP Nurse Practitioner Family; Visit Provider Nurse Practitioner Family
DX: Z12.31 Encounter for screening mammogram for malignant neoplasm of breast (principal)
CPT/HCPCS: 77063; 77067

== ENCOUNTER 2021-07-19 19:20 | Emergency (ER) | payer MEDICARE, SELFPAY ==
[2021-07-19 20:37] VITALS: BP 137/59; PULSE 115; RESP 16; TEMP 36.6; O2SAT 93; BMI 38.6
[2021-07-19 20:45] LABS: Apearance,Urine Cloudy (Clear); Color,Urine Dark Yellow (Yellow)
[2021-07-19 20:46] LABS: Bilirubin,Urine Negative (Negative); Blood, Urine 3+ (Negative); Glucose,Urine (UA) Negative (Negative); Ketones,Urine Negative (Negative); Protein,Urine 2+ (Negative); Specific Gravity, Urine > 1.030 (1.005-1.030); UTC Leukocyte Esterase,Urine 1+ (Negative); UTC Nitrate,Urine Negative (Negative); Urobilinogen,Urine 0.2 EU/dl (0.2)
--- NOTE | 2021-07-19 20:58 | HMH.EDUTC ---
[facility] [place] Disposition Clinical Impression: UTI (urinary tract infection) Qualifiers: Urinary tract infection type: site unspecified Hematuria presence: with hematuria Qualified Code(s): N39.0 - Urinary tract infection, site not specified Disposition: Home, Self-Care Condition on Discharge: Good Instructions: Urinary Tract Infection, DI for Urinary Tract Infection (UTI) Additional Instructions: Drink plenty of fluids. Take tylenol or ibuprofen for pain or fever. Take the medications as directed. Follow up with your regular doctor. GO TO THE ER FOR ANY WORSENING SYMPTOMS The pyridium will make your urine turn orange, this is an expected side effect. It will stain your clothes if it comes into contact with them. Prescriptions: Ondansetron [Zofran 4mg ODT] 4 mg PO Q8HP PRN #20 tab PRN Reason: Nausea [id number] Ciprofloxacin HCl [Cipro 500mg Tab] 500 mg PO BID 7 Days #14 tab Transmission [facility]: [facility] Phenazopyridine HCl [Pyridium 200mg Tablet] 200 pow PO TID #6 tab Transmission Status: Received by [id number] Referrals: Ricardo Kennedy MD [Primary Care Provider] - Time of Disposition: 21:14 Medical Decision Making - Medical Records Medical records reviewed: No: I reviewed the patient's medical records. - Harris Inquiry Pt receiving controlled substance: No Vital Signs: 07/19/21 20:37 07/19/21 21:16 Temperature 98 F 98 F Temperature Source Oral Pulse Rate 115 H Pulse Rate [Left] 115 H Respiratory Rate 16 16 Blood Pressure 137/59 L Blood Pressure [Right Arm] 137/59 L Blood Pressure Mean [Right Arm] 85 02 Sat by Pulse Oximetry 93 L Oxygen Delivery Method Nasal Cannula Oxygen Flow Rate (LPM) 2 - Lab Data Lab results reviewed: Yes: I reviewed the patient's lab results. Lab Results 07/19/21 20:44: Urine Color Dark yellow, Urine Appearance Cloudy, Urine pH 6.0, Ur Specific [place] > 1.030 H, Urine Protein 2+, Urine Glucose (UA) Negative, Urine Ketones Negative, Urine Blood 3+, Urine Nitrate Negative, Urine Bilirubin Negative, Urine Urobilinogen 0.2, Ur Leukocyte Esterase 1+ A Orders (Tests/Meds): ED MEDICATIONS Discontinued Medications Generic Name Dose Route Start Last Admin Trade Name Radha PRN Reason Stop Dose Admin Ceftriaxone Sodium 1 gm 07/19/21 21:07 07/19/21 21:12 Ceftriaxone 1gm Vial IM 07/19/21 21:08 1 gm ONCE ONE Administration Lidocaine HCl 0 ml 07/19/21 21:07 07/19/21 21:12 Lidocaine 1% 5ml Pf Vial IM 07/19/21 21:08 2 ml ONCE ONE Administration [facility] [place] HPI - General Stated complaint: Possible UTI Time Seen by Provider: 07/19/21 20:58 Mode of Arrival: Wheelchair Source of Information: Patient Limitations: No Limitations Description of Symptoms (Recalled from Triage Doc. by RN): pt c/o burnig with urination and pressure. ongoing since last night. HEENT Symptoms (Recalled from RN notes): No Resp Symptoms (Recalled from RN notes): No Skin Symptoms (Recalled from RN notes): No MS Symptoms (Recalled from RN notes): No Functional Status (Recalled from RN notes): wnl - History of Present Illness Provider Complaint: She states that since yesterday she has had dysuria, low back pain, chilling and low grade fever. She believes that she has a uti. - Related Data Home Medications Medication Instructions Recorded Confirmed Aspirin [Aspirin 81mg chewable 81 mg PO DAILY 06/18/17 11/15/20 tab] Lactobacillus Combo No.11 1 each PO DAILY 06/18/17 11/15/20 [Probiotic] Magnesium Oxide [Mag-Ox 400mg Tab] 400 mg PO BID 06/18/17 11/15/20 Metformin HCl [Fortamet] 1,000 mg PO BID 06/18/17 11/15/20 Sitagliptin Phosphate [Januvia 100 mg PO DAILY 06/18/17 11/15/20 100mg tablet] buspirone 10 mg tablet 10 mg PO BID 07/04/17 11/15/20 Ferrous Sulfate 325 mg PO TID 08/30/17 11/15/20 Metoclopramide HCl [Reglan 5mg 5 mg PO BID 08/30/17 11/15/20 T
[2021-07-19 21:16] VITALS: BP 137/59; PULSE 115; RESP 16; TEMP 36.6
== END 2021-07-19 21:18 | disposition home or self-care (01) ==
PROVIDERS: Emergency Provider Nurse Practitioner Family; PCP Internal Medicine Adolescent Medicine
DX: N30.00 Acute cystitis without hematuria (principal); J44.9 Chronic obstructive pulmonary disease, unspecified; I10 Essential (primary) hypertension; E78.5 Hyperlipidemia, unspecified; E11.9 Type 2 diabetes mellitus without complications; K21.9 Gastro-esophageal reflux disease without esophagitis; Z99.81 Dependence on supplemental oxygen; Z79.899 Other long term (current) drug therapy
CPT/HCPCS: G0463; 81003; 96372; 99212; J0696

== ENCOUNTER → 2022-02-23 14:48 | Outpatient (CLI) | payer MEDICARE, SELFPAY ==
[2022-02-23 15:33] LABS: Basophils # 0.1 K/mm3 (0-0.2); Basophils % 1.1 % (0.1-2.0); Eosinophils # 0.3 K/mm3 (0.0-0.4); Eosinophils % 4.1 % (0.1-12.0); Hematocrit 34.3 % (37.0-47.0); Hemoglobin 11.4 g/dL (12.2-16.2); Lymphocytes # 1.9 K/mm3 (0.7-4.5); Lymphocytes % 27.3 % (10-50); Mean Corpuscular HGB Conc 33.1 g/dL (31.8-35.4); Mean Corpuscular Hemoglobin 32.5 pg (27.0-31.2); Mean Corpuscular Volume 98.2 fl (81-99); Mean Platelet Volume 8.6 fl (7.4-10.4); Monocytes # 0.5 K/mm3 (0.1-1.0); Monocytes % 6.9 % (1.7-9.3); Neutrophils # 4.3 K/mm3 (1.8-7.8); Neutrophils % 60.5 % (37.0-80.0); Platelet Count 288 K/mm3 (142-424); Red Cell Distribution Width 16.7 % (11.5-17.5); White Blood Count 7.1 K/mm3 (4.8-10.8)
[2022-02-23 15:42] LABS: INR 0.97 (0.9-1.1); Prothrombin Time 10.5 seconds (10.1-12.5)
[2022-02-23 15:43] LABS: Ammonia 11 umol/L (9-30)
[2022-02-23 16:27] LABS: Chloride 96 mmol/L (98-107); Potassium 5.2 mmoL/L (3.5-5.1); Sodium 140 mmol/L (136-145)
[2022-02-23 16:29] LABS: Blood Urea Nitrogen 22 mg/dl (7-17); Estimated Glomerular Filt Rate 63 ml/min (>60); GFR (African American) 76 ML/MIN (>60)
[2022-02-23 16:30] LABS: Alanine Aminotransferase 39 U/L (12-78); Albumin Level 4.3 g/dl (3.5-5.0); Albumin/Globulin Ratio 1.4 (1.1-1.8); Alkaline Phosphatase 117 U/L (38-126); Anion Gap 19.2 mEq/L (5-15); Aspartate Amino Transferase 59 U/L (14-36); Bilirubin,Total 0.3 mg/dl (0.2-1.3); Calcium 9.2 mg/dl (8.4-10.2); Carbon Dioxide 30 mmol/L (22.0-30.0); Globulin 3.1 g/dL (1.3-3.2); Glucose 129 mg/dl (74-100); Iron 89 ug/dL (37-170); Total Protein,Serum 7.4 g/dl (6.3-8.2)
[2022-02-23 16:40] LABS: Total Iron Binding Capacity 418 ug/dL (265-497)
[2022-02-23 17:05] LABS: Ferritin 80.6 ng/ml (11.1-264)
[2022-02-25 07:08] LABS: AFP, Tumor Marker 3.8 ng/mL (0.0-9.2)
== END ==
PROVIDERS: PCP Nurse Practitioner Family; Visit Provider Nurse Practitioner Family
DX: K76.9 Liver disease, unspecified (principal); K74.60 Unspecified cirrhosis of liver; K92.1 Melena
CPT/HCPCS: 36415; 80053; 82105; 82140; 82728; 83540; 83550; 85025; 85610

== ENCOUNTER → 2022-02-26 08:09 | Outpatient (CLI) | payer MEDICARE, SELFPAY ==
--- NOTE | 2022-02-26 08:15 | US_ITS ---
FINAL REPORT CLINICAL HISTORY: FATTY LIVER,CIRRHOSIS,MELENA FINDINGS: Sonographic images of the right upper quadrant were obtained. The pancreas is partially obscured. There is irregular hepatic contour with coarsened echotexture consistent with the patient's history of cirrhosis. The portal vein measures 9 mm and is patent with normal hepatopetal flow. The gallbladder appears normal without evidence of gallstones.There is no evidence of biliary ductal dilatation.The common duct measures 2 mm. The right kidney measures 10.4 cm in length. There is a small cyst measuring 9 mm. There is a 2nd cyst measuring 2.5 mm. IMPRESSION: Irregular hepatic contour and coarsened echotexture consistent with cirrhosis. Right renal cysts. Reviewed, Interpreted and Dictated by Julio C Engle III, MD Transcribed by Almita Mcgrath Authenticated and [facility]
[2022-02-26 14:35] LABS: Occult Blood,Stool Positive (Negative)
[2022-02-26 14:35] LABS: Occult Blood,Stool Positive (Negative)
[2022-02-26 14:35] LABS: Occult Blood,Stool Positive (Negative)
== END ==
LOC: LAB 03-02 00:30 → LAB.DROPOF 03-02 13:03
PROVIDERS: PCP Nurse Practitioner Family; Visit Provider Nurse Practitioner Family
DX: K74.60 Unspecified cirrhosis of liver (principal); K76.89 Other specified diseases of liver; K92.1 Melena
CPT/HCPCS: 76705; 82272; G0328

== ENCOUNTER → 2022-04-25 14:51 | Outpatient (CLI) | payer MEDICARE, SELFPAY ==
[2022-04-25 15:49] LABS: Basophils # 0.1 K/mm3 (0-0.2); Basophils % 0.8 % (0.1-2.0); Eosinophils # 0.3 K/mm3 (0.0-0.4); Eosinophils % 3.5 % (0.1-12.0); Hematocrit 34.8 % (37.0-47.0); Hemoglobin 10.9 g/dL (12.2-16.2); Lymphocytes # 2.6 K/mm3 (0.7-4.5); Lymphocytes % 27.8 % (10-50); Mean Corpuscular HGB Conc 31.4 g/dL (31.8-35.4); Mean Corpuscular Hemoglobin 31.2 pg (27.0-31.2); Mean Corpuscular Volume 99.2 fl (81-99); Mean Platelet Volume 8.1 fl (7.4-10.4); Monocytes # 0.7 K/mm3 (0.1-1.0); Monocytes % 7.7 % (1.7-9.3); Neutrophils # 5.5 K/mm3 (1.8-7.8); Neutrophils % 60.2 % (37.0-80.0); Platelet Count 394 K/mm3 (142-424); Red Blood Count 3.51 M/mm3 (4.20-5.40); Red Cell Distribution Width 16.9 % (11.5-17.5); White Blood Count 9.2 K/mm3 (4.8-10.8)
[2022-04-25 16:36] LABS: Iron 61 ug/dL (37-170)
[2022-04-25 16:46] LABS: Total Iron Binding Capacity 395 ug/dL (265-497)
[2022-04-25 17:13] LABS: Ferritin 99.7 ng/ml (11.1-264)
[2022-04-25 22:16] LABS: Occult Blood,Stool Positive (Negative)
== END ==
PROVIDERS: PCP Nurse Practitioner Family; Visit Provider Nurse Practitioner Family
DX: K92.1 Melena (principal); D64.9 Anemia, unspecified
CPT/HCPCS: 36415; 82272; 82728; 83540; 83550; 85025; G0328

== ENCOUNTER → 2022-05-08 15:35 | Outpatient (CLI) | payer MEDICARE, SELFPAY ==
[2022-05-08 17:53] LABS: Basophils % 0.7 % (0.1-2.0); Eosinophils # 0.2 K/mm3 (0.0-0.4); Eosinophils % 3.7 % (0.1-12.0); Hematocrit 30.3 % (37.0-47.0); Hemoglobin 9.3 g/dL (12.2-16.2); Lymphocytes # 1.7 K/mm3 (0.7-4.5); Mean Corpuscular HGB Conc 30.8 g/dL (31.8-35.4); Mean Corpuscular Volume 100.5 fl (81-99); Mean Platelet Volume 8.7 fl (7.4-10.4); Monocytes # 0.4 K/mm3 (0.1-1.0); Monocytes % 7.7 % (1.7-9.3); Neutrophils # 3.2 K/mm3 (1.8-7.8); Neutrophils % 57.9 % (37.0-80.0); Platelet Count 313 K/mm3 (142-424); Red Blood Count 3.02 M/mm3 (4.20-5.40); Red Cell Distribution Width 16.4 % (11.5-17.5); White Blood Count 5.6 K/mm3 (4.8-10.8)
[2022-05-08 18:34] LABS: Iron 51 ug/dL (37-170)
[2022-05-08 18:44] LABS: Total Iron Binding Capacity 414 ug/dL (265-497)
[2022-05-08 19:10] LABS: Ferritin 35.2 ng/ml (11.1-264)
== END ==
PROVIDERS: PCP Nurse Practitioner Family; Visit Provider Nurse Practitioner Family
DX: K30 Functional dyspepsia (principal); K58.9 Irritable bowel syndrome, unspecified; K75.81 Nonalcoholic steatohepatitis (NASH); K74.60 Unspecified cirrhosis of liver; K62.5 Hemorrhage of anus and rectum; D64.9 Anemia, unspecified
CPT/HCPCS: 36415; 82728; 83540; 83550; 85025

== ENCOUNTER → 2022-07-03 16:15 | Outpatient (CLI) | payer OTHER, MEDICARE, SELFPAY ==
[2022-07-03 17:25] LABS: Basophils % 0.5 % (0.1-2.0); Eosinophils % 0.2 % (0.1-12.0); Hematocrit 28.3 % (37.0-47.0); Hemoglobin 8.3 g/dL (12.2-16.2); Lymphocytes % 14.2 % (10-50); Mean Corpuscular HGB Conc 29.5 g/dL (31.8-35.4); Mean Corpuscular Hemoglobin 25.9 pg (27.0-31.2); Mean Corpuscular Volume 87.9 fl (81-99); Mean Platelet Volume 7.9 fl (7.4-10.4); Monocytes # 0.4 K/mm3 (0.1-1.0); Monocytes % 5.4 % (1.7-9.3); Neutrophils # 5.7 K/mm3 (1.8-7.8); Neutrophils % 79.7 % (37.0-80.0); Platelet Count 493 K/mm3 (142-424); Red Blood Count 3.22 M/mm3 (4.20-5.40); Red Cell Distribution Width 17.1 % (11.5-17.5); White Blood Count 7.1 K/mm3 (4.8-10.8)
== END ==
PROVIDERS: PCP Internal Medicine Adolescent Medicine; Visit Provider Nurse Practitioner Family
DX: I50.32 Chronic diastolic (congestive) heart failure (principal)
CPT/HCPCS: 85025

== ENCOUNTER → 2022-07-11 13:42 | Outpatient (CLI) | payer OTHER, SELFPAY ==
[2022-07-11 19:36] LABS: Basophils % 0.1 % (0.1-2.0); Eosinophils % 0.2 % (0.1-12.0); Hematocrit 29.3 % (37.0-47.0); Hemoglobin 8.5 g/dL (12.2-16.2); Lymphocytes # 0.7 K/mm3 (0.7-4.5); Lymphocytes % 6.9 % (10-50); Mean Corpuscular HGB Conc 28.9 g/dL (31.8-35.4); Mean Corpuscular Hemoglobin 25.7 pg (27.0-31.2); Mean Corpuscular Volume 89.1 fl (81-99); Mean Platelet Volume 8.8 fl (7.4-10.4); Monocytes # 0.6 K/mm3 (0.1-1.0); Monocytes % 5.9 % (1.7-9.3); Neutrophils # 8.2 K/mm3 (1.8-7.8); Neutrophils % 86.9 % (37.0-80.0); Platelet Count 334 K/mm3 (142-424); Red Blood Count 3.28 M/mm3 (4.20-5.40); Red Cell Distribution Width 18.3 % (11.5-17.5); White Blood Count 9.5 K/mm3 (4.8-10.8)
[2022-07-11 19:39] LABS: MANUAL DIFFERENTIAL MANUAL DIFFERENTIAL (MANUAL DIFF)
[2022-07-11 21:04] LABS: Lymphocytes % 7 % (10-50); Monocytes % 2 % (2-9); Neutrophils % 90 % (42-76); Total Cells Counted 100
[2022-07-11 21:05] LABS: Hypochromasia 1+; Platelet Estimate Normal; Stomatocytes 1+
== END ==
PROVIDERS: PCP Nurse Practitioner Family; Visit Provider Nurse Practitioner Family
DX: I50.32 Chronic diastolic (congestive) heart failure (principal); J44.9 Chronic obstructive pulmonary disease, unspecified
CPT/HCPCS: 85007; 85025